=== PATIENT | female | born 1940 | race Caucasian/White ===

== ENCOUNTER 2018-09-17 09:37 | Day surgery (SDC) | payer MEDICARE ==
[~2018-09-17] VITALS: Ht 160 cm; Wt 64.4 kg
[~2018-09-17 09:37] MED LIST: ACET1TAB55 PO; ASPI81TA85 PO; ATOR1TAB21 PO; CALC1TAB63 PO; ELIQ5TAB PO; ESCI10TA2 PO; LIDOCAINE 2% INJ 100 MG/5 ML SDV (FOR ANES.) As Ordered ONE; LISI-538 PO; MELA5TAB21 PO; METO1TAB87 PO; MULTCAP PO; NS 1,000 ML IV SCH; PROPOFOL 200 MG/20 ML VIAL As Ordered ONE; SYST1SOL OU
--- NOTE | 2018-09-17 11:38 | ROOR ---
Patient Name: Ronda Hall Procedure Date: 09/17/2018 11:17 AM Date of : 1940 Age: 77 Room: [facility] Gender: Female Note Status: Finalized Procedure: Total Colonoscopy to Cecum + Cold Snare Polypectomy + Hemoclip Indications: High risk colon cancer surveillance: Personal history of colonic polyps, Last colonoscopy: 2015, Incidental - Change in bowel habits Providers: Jimmy Olson MD Referring MD: Mary Carmen Montero NP Requesting Provider: Medicines: Monitored Anesthesia Care Complications: No immediate complications. Procedure: Pre-Anesthesia Assessment: - The heart rate, respiratory rate, oxygen saturations, blood pressure, adequacy of pulmonary ventilation, and response to care were monitored throughout the procedure. The Colonoscope was introduced through the anus and advanced to the cecum, identified by appendiceal orifice and ileocecal valve. The colonoscopy was performed without difficulty. The patient tolerated the procedure well. The quality of the bowel preparation was excellent. Findings: The perianal and digital rectal examinations were normal. Multiple small and large-mouthed diverticula were found in the recto-sigmoid colon, sigmoid colon and descending colon. A large polyp was found in the cecum. The polyp was carpet-like. The polyp was removed with a cold snare. Resection and retrieval were complete. To prevent bleeding after the polypectomy, one hemostatic clip was successfully placed (MR conditional). There was no bleeding at the end of the procedure. The exam was otherwise without abnormality on direct and retroflexion views. Impression: - Diverticulosis in the recto-sigmoid colon, in the sigmoid colon and in the descending colon. - One large polyp in the cecum, removed with a cold snare. Resected and retrieved. Clip (MR conditional) was placed. - The examination was otherwise normal on direct and retroflexion views. - The exam was otherwise normal to the cecum. Recommendation: - Patient has a contact number available for emergencies. The signs and symptoms of potential delayed complications were discussed with the patient. Return to normal activities tomorrow. Written discharge instructions were provided to the patient. - High fiber diet. - Discharge patient to home. - Continue present medications. - Await pathology results. - Telephone GI clinic for pathology results in 1 week. - Repeat colonoscopy for symptoms only. - Return to referring physician. - The findings and recommendations were discussed with the patient's family. Jimmy Olson MD Jimmy Olson MD 09/17/2018 11:38:05 AM Electronically signed by Jimmy Olson MD Number of Addenda: 0 Note Initiated On: 09/17/2018 11:17 AM Estimated Blood Loss: Estimated blood loss: none.
[2018-09-17 12:14] VITALS: BP 138/90
== END 2018-09-17 12:13 | disposition home or self-care (01) ==
LOC: M OPP 09:37
PROVIDERS: ATTEND Internal Medicine Gastroenterology
DX: K63.5 Polyp of colon (principal); K57.30 Diverticulosis of large intestine without perforation or abscess without bleeding; R19.4 Change in bowel habit; Z86.010 Personal history of colon polyps

== ENCOUNTER 2020-10-07 09:22 | Observation (INO) | payer MEDICARE ==
[~2020-10-07] VITALS: Ht 160 cm; Wt 68.3 kg
[~2020-10-07 09:22] MED LIST changes: -ASPI81TA85 PO; +ASPI81TA86 PO; +ESCI10TA16 PO; -ESCI10TA2 PO; -LIDOCAINE 2% INJ 100 MG/5 ML SDV (FOR ANES.) As Ordered ONE; -LISI-538 PO; +LISI20TA33 PO; -NS 1,000 ML IV SCH; -PROPOFOL 200 MG/20 ML VIAL As Ordered ONE
[2020-10-07] MEDS ORDERED: AMBI10TA PO (09:38)
[2020-10-07] MEDS ORDERED: VITA200028 PO (09:38)
[2020-10-07] MEDS ORDERED: NOXI1TAB PO (09:38)
[2020-10-07 12:58] LABS: BASO # 0.1 10^3/uL (0.0-0.2); BASO % 0.7 % (0.0-1.0); EOS # 0.1 10^3/uL (0.0-0.5); EOS % 1.1 % (0.0-3.0); HEMATOCRIT 37.2 % (36.0-47.0); HEMOGLOBIN 12.2 g/dl (12.0-15.5); LYMPH % 19.4 % (24.0-44.0); MEAN CORPUSCULAR HEMOGLOBIN 30.7 pg (27.0-33.0); MEAN CORPUSCULAR HGB CONC 32.8 g/dl (32.0-36.5); MEAN CORPUSCULAR VOLUME 93.7 fl (80.0-96.0); MONO # 0.8 10^3/uL (0.0-0.8); MONO % 7.7 % (2.0-8.0); NEUTROPHILS # 7.4 10^3/uL (1.5-8.5); NEUTROPHILS % 70.7 % (36.0-66.0); PLATELET COUNT, AUTOMATED 314 10^3/uL (150-450); RED BLOOD COUNT 3.97 10^6/uL (4.00-5.40); WHITE BLOOD COUNT 10.5 10^3/uL (4.0-10.0)
[2020-10-07] MEDS ORDERED: METOPROLOL TART 25 MG TABLET PO ONE (13:00)
[2020-10-07] MEDS ORDERED: ASPIRIN 81 MG CHEW TABLET PO ONE (13:00)
[2020-10-07] MEDS ORDERED: APIXABAN 5 MG TAB (ELIQUIS) PO ONE (13:00)
[2020-10-07 13:08] LABS: INR 1.14; PROTHROMBIN TIME 14.9 SECONDS (12.5-14.3)
[2020-10-07 13:09] LABS: PARTIAL THROMBOPLASTIN TIME 35.2 SECONDS (24.2-38.5)
[2020-10-07 13:31] LABS: ALBUMIN 3.2 GM/DL (3.2-5.2); ALT/SGPT 21 U/L (12-78); BILIRUBIN,DIRECT 0.1 MG/DL (0.0-0.2); BILIRUBIN,TOTAL 0.6 MG/DL (0.2-1.0); BLOOD UREA NITROGEN 20 MG/DL (7-18); CALCIUM LEVEL 8.6 MG/DL (8.8-10.2); CARBON DIOXIDE LEVEL 27 MEQ/L (21-32); CHLORIDE LEVEL 106 MEQ/L (98-107); CK-MB VALUE MASS < 1.0 NG/ML (<3.6); CPK CREATINE PHOSPHOKINASE 61 U/L (26-192); CREATININE FOR GFR 1.05 MG/DL (0.55-1.30); FREE T4 0.96 NG/DL (0.76-1.46); GLOMERULAR FILTRATION RATE 53.8 (>39); GLUCOSE, FASTING 82 MG/DL (70-100); MAGNESIUM LEVEL 2.1 MG/DL (1.8-2.4); MB/CK RELATIVE INDEX 1.64 (< OR =4); PHOSPHORUS LEVEL 3.5 MG/DL (2.5-4.9); POTASSIUM SERUM 3.9 MEQ/L (3.5-5.1); SODIUM LEVEL 138 MEQ/L (136-145); TOTAL PROTEIN 6.8 GM/DL (6.4-8.2); TROPONIN I 0.03 NG/ML (< 0.10)
--- NOTE | 2020-10-07 13:31 | REP ---
INDICATION: pain. COMPARISON: None. TECHNIQUE: Portable FINDINGS: The technique utilized in obtaining the radiograph has magnified the cardiac silhouette and attenuated the interstitial markings. The superior mediastinal structures are midline. The cardiac silhouette appears mildly enlarged but accentuated by technique. Lung owens are clear. No patchy opacities or pleural effusions are present. The osseous structures are within normal limits. IMPRESSION: Possible mild cardiomegaly without evidence of acute cardiopulmonary disease. <Electronically signed by Giovanni Richmond > 10/07/20 [id number]
[2020-10-07] MEDS ORDERED: METOPROLOL 5 MG/5 ML VIAL IV STA (13:50)
[2020-10-07] MEDS ORDERED: AMLO2.5T3 PO (14:26)
[2020-10-07] MEDS ORDERED: FURO20TA2 PO (14:26)
[2020-10-07] MEDS ORDERED: AMIO200T3 PO (14:26)
[2020-10-07] MEDS ORDERED: D31000TA2 PO (14:31)
[2020-10-07] MEDS ORDERED: ACETAMINOPHEN TAB 650MG DOSE (2X325MG) PO PRN (14:45)
[2020-10-07] MEDS ORDERED: MOM 30ML SUSPENSION UDC PO PRN (14:45)
[2020-10-07] MEDS ORDERED: MULT-40 PO (15:10)
[2020-10-07] MEDS ORDERED: ASPI81TA26 PO (15:10)
[2020-10-07] MEDS ORDERED: NATU1TAB5 PO (15:10)
[2020-10-07] MEDS ORDERED: LEXA1TAB PO (15:10)
[2020-10-07] MEDS ORDERED: POLYVINYL ALCOHOL OPHTH SOLN 15 ML(LIQUITEARS) OU PRN (15:25)
--- NOTE | 2020-10-07 15:28 | HPEPDOC ---
[facility] Medical History & Physical Date of Admission Oct 07, 2020 Date of Service: Oct 07, 2020 History and Physical Chief complaint: Who presented to the hospital with bilateral upper arm, neck and back pain for 3 weeks History of present illness: Patient is a 79-year-old female who presented to the hospital with a 3 week history of both her upper arms, neck and upper back pain. Patient describes this as nerve pain. She reports that she takes Tylenol 1000 twice a day with some relief. She uses a recliner to sleep. Reports some difficulty with movement but has denied any falls or any recent injuries. Denies overexerting herself recently. Upon arrival to emergency room, patient was found to have a flutter. However, she does have a prior history of atrial fibrillation. She has recently seen cardiology. 3 weeks ago and was prescribed amiodarone furosemide and amlodipine that she has decided upon herself to stop taking one week ago. Currently patient denies any chest pain, shortness of breath, palpitations or cough. Has not expressed any nausea, vomiting, abdominal pain, urinary discomfort or recent fevers or chills. Patient reports that her lower extremit ies. Has not expressed any edema today. Patient does report a 10 pound weight loss since June. Reports her appetite is poor. Past Medical History: Atrial fibrillation (Eliquis / Metoprolol / Amiodarone) CAD s/p Stent x 3 (2008 x1, 2012 x2; on ASA 81) HTN DLP Anemia 2/2 Iron deficiency Vitamin D deficiency Depression / Insomnia / Fibromyalgia GERD Past Surgical History: Tonsillectomy and adenoidectomy Deviated septum repair Total abdominal hysterectomy with bilateral salpingo-oophorectomy Appendectomy Bilateral foot bunionectomy Colonoscopy 08/2018 with evidence of diverticulosis and polyp resection Allergies: See below Medications: See below Family History: - No history of malignancies Social History: - Denies the use of alcohol or illicit drugs; patient had a remote smoking history - Denies recent travel or sick contacts - Lives with , who is in hospice care at home - 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; 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 Review of Systems: 10 point review of systems complete, all negative otherwise stated in HPI Physical exam: - Vitals: BP [150/79], HR [74], RR [20], Sat [97%RA], Temp [97.3F] - General: Lying in bed, Speaking in full sentences, AAOx3 - HEENT: NC, AT, PERRLA - CVS: IrIr, +S1S2 - Lungs: Fair air entry bilaterally, No appreciable wheezing / rales / rhonchi - Abdomen: Soft, Non-distended, Non-tender - Extremities: No lower extremity edema, No calf tenderness - Neuro: 5/5 strength at upper / lower extremities bilaterally, CN 2-12 grossly intact - Skin: No visible rashes Labs: See below Imaging: CXR 10/07: Possible mild cardiomegaly without evidence of acute cardiopulmonary disease. EKG: See below Assessment and Plan: Bilateral arm / neck / upper back pain - possibly 2/2 musculoskeletal etiology - Patient reports that shes been experiencing this pain for 3 weeks - Some relief with Tylenol - Patient denies any chest pain, shortness breath, palpitations - Physical reveals point tenderness throughout back - Will get PT / OT on board / Fall precautions - c/w Tylenol PRN Atrial fibrillation - Upon arrival to ER, patient was found to be in atrial flutter - Patient reports that 3 weeks ago she was started on amiodarone that she has stopped 1 week ago - Patient remains asymptomatic; denies any chest pain, shortness of breath or palpitations - EKG reviewed - Troponin x 1 negative; will continue to trend - s/p Metoprolol 25 in the ER - Will c/w Metoprolol at increased frequency and Amiodarone - c/w Full anticoagulation with Eliquis CAD - s/p Stent x 3 (2008 x1, 2012 x2 - c/w ASA 81, Atorvastatin and Metoprolol HTN - BP slightly elevated - Will hold Lisinopril and Amlodipine (re: increased dose of Metoprolol) DLP - c/w Atorvastatin Anemia 2/2 Iron deficiency - c/w Iron supplementation Vitamin D deficiency - c/w Vitamin D supplementation Depression / Insomnia / Fibromyalgia - c/w Escitalopram / Zolpidem GERD - Currently not on any medications DVT prophylaxis - Will c/w full anticoagulation with Eliquis Vital Signs Vital Signs Date Time Temp Pulse Resp B/P (MAP) Pulse Ox O2 Delivery O2 Flow Rate FiO2 10/07/20 14:50 81 171/75 10/07/20 13:37 96 10/07/20 09:23 97.3 20 Room Air Laboratory Data Labs 24H Laboratory Tests 2 10/07/20 12:43: Immature Granulocyte % (Auto) 0.4, Neutrophils (%) (Auto) 70.7H, Lymphocytes (%) (Auto) 19.4L, Monocytes (%) (Auto) 7.7, Eosinophils (%) (Auto) 1.1, Basophils (%) (Auto) 0.7, Neutrophils # (Auto) 7.4, Lymphocytes # (Auto) 2.0, Monocytes # (Auto) 0.8, Eosinophils # (Auto) 0.1, Basophils # (Auto) 0.1, Nucleated Red Blood Cells % (auto) 0.0, Prothrombin Time 14.9H, Prothromb Time International Ratio 1.14, Activated Partial Thromboplast Time 35.2, Anion Gap 5L, Glomerular Filtration Rate 53.8, Calcium Level 8.6L, Phosphorus Level 3.5, Magnesium Level 2.1, Total Bilirubin 0.6, Direct Bilirubin 0.1, Aspartate Amino Transf (AST/SGOT) 19, Alanine Aminotransferase (ALT/SGPT) 21, Alkaline Phosphatase 119H, Total Creatine Kinase 61, Creatine Kinase MB < 1.0, Creatine Kinase MB Relative Index 1.64, Troponin I 0.03, Total Protein 6.8, Albumin 3.2, Albumin/Globulin Ratio 0.9L, Thyroid Stimulating Hormone (TSH) 1.550, Free Thyroxine 0.96 CBC/BMP Laboratory Tests 10/07/20 12:43 Home Medications Scheduled Amiodarone HCl (Amiodarone HCl) 200 Mg Tablet, 400 MG PO BID Amlodipine Besylate (Amlodipine Besylate) 2.5 Mg Tablet, 2.5 MG PO DAILY Apixaban (Eliquis) 5 Mg Tablet, 5 MG PO BID Aspirin (Aspirin EC) 81 Mg Tablet.dr, 81 MG PO DAILY Atorvastatin Calcium (Atorvastatin Calcium) 20 Mg Tablet, 20 MG PO QPM Cholecalciferol (Vitamin D3) (Vitamin D3) 125 Mcg Tablet, 125 MCG PO DAILY Escitalopram Oxalate (Lexapro) 10 Mg Tablet, 10 MG PO DAILY Furosemide (Furosemide) 20 Mg Tablet, 20 MG PO DAILY Lisinopril (Lisinopril) 20 Mg Tablet, 20 MG PO DAILY Metoprolol Tartrate (Metoprolol Tartrate) 25 Mg Tablet, 25 MG PO DAILY Multivitamin (Multivitamins) 1 Each Tablet, 1 TAB PO DAILY Scheduled PRN Acetaminophen (Acetaminophen) 325 Mg Tablet, 650 MG PO Q4HP PRN for PAIN Propylene Glycol/Peg 400 (Systane 0.3-0.4% Eye Drops) 15 Ml Drops, 1 DROP OU PRN PRN for DRY EYE Zolpidem Tartrate (Ambien) 10 Mg Tablet, 10 MG PO QHS PRN for SLEEP Allergies Coded Allergies: Penicillins (Verified Allergy, Unknown, HIVES, 09/09/18) DMITRI JHA MD Oct 07, 2020 15:28
[2020-10-07 16:39] LABS: RSV AMPLIFICATION NEGATIVE (NEGATIVE)
[2020-10-07 17:45] VITALS: BP 168/98
[2020-10-07 18:00] LABS: CK-MB VALUE MASS < 1.0 NG/ML (<3.6); CPK CREATINE PHOSPHOKINASE 64 U/L (26-192); MB/CK RELATIVE INDEX 1.56 (< OR =4); TROPONIN I 0.03 NG/ML (< 0.10)
[2020-10-07] MEDS ORDERED: MAGIC MOUTHWASH SUSPENSION BTL SS PRN (18:15)
[2020-10-07] MEDS: ESCITALOPRAM OXALATE 10 MG TAB (LEXAPRO) PO SCH (19:01)
[2020-10-07] MEDS: METOPROLOL TART 25 MG TABLET PO SCH (19:01)
[2020-10-07 20:00] VITALS: BP 149/78
[2020-10-07] MEDS ORDERED: ATORVASTATIN 20 MG TAB PO SCH (21:00)
[2020-10-07] MEDS ORDERED: zolPIDEM TARTRATE 5 MG TAB PO PRN (21:00)
[2020-10-07] MEDS: NYSTATIN 500,000 U/5 ML SUSP UDC SS SCH (21:49)
[2020-10-07] MEDS: APIXABAN 5 MG TAB (ELIQUIS) PO SCH (21:49)
[2020-10-07] MEDS: AMIODARONE 200 MG TAB (PACERONE) PO SCH (21:49)
[2020-10-07] MEDS: DOCUSATE SODIUM 100MG CAPSULE PO SCH (21:49)
[2020-10-08] VITALS (7 sets, daily range): BP systolic 133–172; BP diastolic 68–96
[2020-10-08] MEDS: METOPROLOL TART 25 MG TABLET PO SCH ×2 (00:01→06:32)
[2020-10-08 00:50] LABS: CK-MB VALUE MASS 1.1 NG/ML (<3.6); MB/CK RELATIVE INDEX 1.67 (< OR =4); TROPONIN I 0.02 NG/ML (< 0.10)
[2020-10-08 05:22] LABS: BASO # 0.1 10^3/uL (0.0-0.2); BASO % 1.1 % (0.0-1.0); EOS # 0.2 10^3/uL (0.0-0.5); EOS % 2.6 % (0.0-3.0); HEMATOCRIT 37.6 % (36.0-47.0); HEMOGLOBIN 12.1 g/dl (12.0-15.5); LYMPH # 2.1 10^3/uL (1.5-5.0); LYMPH % 24.3 % (24.0-44.0); MEAN CORPUSCULAR HEMOGLOBIN 30.1 pg (27.0-33.0); MEAN CORPUSCULAR HGB CONC 32.2 g/dl (32.0-36.5); MEAN CORPUSCULAR VOLUME 93.5 fl (80.0-96.0); MONO # 0.7 10^3/uL (0.0-0.8); MONO % 7.6 % (2.0-8.0); NEUTROPHILS # 5.5 10^3/uL (1.5-8.5); NEUTROPHILS % 64.2 % (36.0-66.0); PLATELET COUNT, AUTOMATED 324 10^3/uL (150-450); RED BLOOD COUNT 4.02 10^6/uL (4.00-5.40); WHITE BLOOD COUNT 8.5 10^3/uL (4.0-10.0)
[2020-10-08 05:41] LABS: CALCIUM LEVEL 8.8 MG/DL (8.8-10.2); CREATININE FOR GFR 1.05 MG/DL (0.55-1.30); GLOMERULAR FILTRATION RATE 53.8 (>39); POTASSIUM SERUM 4.1 MEQ/L (3.5-5.1)
[2020-10-08] MEDS: APIXABAN 5 MG TAB (ELIQUIS) PO SCH (08:25)
[2020-10-08] MEDS: AMIODARONE 200 MG TAB (PACERONE) PO SCH (08:25)
[2020-10-08] MEDS: ESCITALOPRAM OXALATE 10 MG TAB (LEXAPRO) PO SCH (08:26)
[2020-10-08] MEDS: NYSTATIN 500,000 U/5 ML SUSP UDC SS SCH (08:26)
[2020-10-08] MEDS: DOCUSATE SODIUM 100MG CAPSULE PO SCH (08:26)
[2020-10-08] MEDS ORDERED: METO1TAB87 PO (08:45)
[2020-10-08] MEDS ORDERED: MULTIVITAMINS/MINERALS THERAP 1 TAB PO SCH (09:00)
[2020-10-08] MEDS ORDERED: VITAMIN D 1,000 INTERNATIONAL UNITS TABLET PO SCH (09:00)
[2020-10-08] MEDS ORDERED: ASPIRIN 81MG ENTERIC TABLET PO SCH (09:00)
--- NOTE | 2020-10-08 12:58 | DS.PDOC ---
Discharge Summary General Date of Admission Oct 07, 2020 at 09:23 Date of Discharge 10/08/2020 Discharge Summary PROCEDURES PERFORMED DURING STAY: [None]. ADMITTING DIAGNOSES / DISCHARGE DIAGNOSES: Atrial fibrillation / flutter Bilateral arm / neck / upper back pain - possibly 2/2 musculoskeletal etiology CAD HTN DLP Anemia 2/2 Iron deficiency Vitamin D deficiency Depression / Insomnia / Fibromyalgia GERD DVT prophylaxis COMPLICATIONS/CHIEF COMPLAINT: Atrial Flutter W/ Rvr. HISTORY OF PRESENT ILLNESS: Patient is a 79-year-old female who presented to the hospital with a 3 week history of both her upper arms, neck and upper back pain. Patient describes this as nerve pain. She reports that she takes Tylenol 1000 twice a day with some relief. She uses a recliner to sleep. Reports some difficulty with movement but has denied any falls or any recent injuries. Denies overexerting herself recently. Upon arrival to ER, patient was found to have a flutter. However, she does have a prior history of atrial fibrillation. She has recently seen cardiology. 3 weeks ago and was prescribed amiodarone furosemide and amlodipine that she has decided upon herself to stop taking one week ago. Patient was originally hospitalist service for observation status of her atrial fibrillation/flutter. HOSPITAL COURSE: Atrial fibrillation / flutter - Upon arrival to ER, patient was found to be in atrial flutter - Patient reports that 3 weeks ago she was started on amiodarone that she has stopped 1 week ago - Patient remains asymptomatic without any chest pain, shortness of breath, palpitations - Rate appears well controlled between 80 and 100 - EKG reviewed - Troponin x 3 negative - s/p Metoprolol 25 in the ER - c/w Metoprolol at BID dosign / Amiodarone based on outpatient regimen - c/w Full anticoagulation with Eliquis - Case has been discussed with cardiology and she will have follow-up with cardiology within the next 7 days Bilateral arm / neck / upper back pain - possibly 2/2 musculoskeletal etiology - Patient reports that shes been experiencing this pain for 3 weeks - Some relief with Tylenol - Again she has denied any chest pain, shortness breath, palpitations - Physical continues to reveal tenderness - Patient will work with PT / OT - if cleared; will be discharge home with services - c/w Tylenol PRN - Will have outpatient follow-up with primary care provider within the next 7 days CAD - s/p Stent x 3; 2008 x1, 2013 x2 - c/w ASA 81, Atorvastatin and Metoprolol BID HTN - BP slightly elevated - Will discontinue Lisinopril - Will resume Amlodipine 2.5 DLP - c/w Atorvastatin Anemia 2/2 Iron deficiency - c/w Iron supplementation Vitamin D deficiency - c/w Vitamin D supplementation Depression / Insomnia / Fibromyalgia - c/w Escitalopram / Zolpidem GERD - Currently not on any medications DVT prophylaxis - c/w full anticoagulation with Eliquis DISCHARGE MEDICATIONS: Please see below. ALLERGIES: Please see below. PHYSICAL EXAMINATION ON DISCHARGE: Vitals (See below) General: Sitting up in bed and appears comfortable, AAOx3 HEENT: NC, AT CVS: +S1S2 Lungs: Fair air entry b/l, no wheezing, rales or rhonchi Abdomen: Soft, ND, NT Extremities: no evidence of edema, - Calf tenderness LABORATORY DATA: Please see below. IMAGING: CXR 10/07: Possible mild cardiomegaly without evidence of acute cardiopulmonary disease. ACTIVITY: [As tolerated]. DISCHARGE PLAN: Follow-up with primary care provider, and cardiology within the next 7 days Consider follow-up with rheumatology after referral from primary care provider Remain compliant with treatment plan and medications Return to the ER if you experience any problems DISPOSITION: Home with services DISCHARGE CONDITION: [Stable]. TIME SPENT ON DISCHARGE: 35 minutes. Vital Signs/I&Os Vital Signs Date Time Temp Pulse Resp B/P (MAP) Pulse Ox O2 Delivery O2 Flow Rate FiO2 10/08/20 12:00 97.7 80 16 136/82 (100) 94 Room Air I&O- Last 24 Hours up to 6 AM 10/08/20 06:00 Intake Total 300 ml Output Total 600 ml Balance -300 ml Laboratory Data Labs 24H Laboratory Tests 2 10/07/20 15:48: Coronavirus (COVID-19)(PCR) NEGATIVE, Influenza Type A (RT-PCR) NEGATIVE, Influenza Type B (RT-PCR) NEGATIVE, Respiratory Syncytial Virus (PCR) NEGATIVE 10/07/20 17:18: Total Creatine Kinase 64, Creatine Kinase MB < 1.0, Creatine Kinase MB Relative Index 1.56, Troponin I 0.03 10/08/20 00:02: Total Creatine Kinase 66, Creatine Kinase MB 1.1, Creatine Kinase MB Relative Index 1.67, Troponin I 0.02# 10/08/20 04:51: Immature Granulocyte % (Auto) 0.2, Neutrophils (%) (Auto) 64.2, Lymphocytes (%) (Auto) 24.3, Monocytes (%) (Auto) 7.6, Eosinophils (%) (Auto) 2.6, Basophils (%) (Auto) 1.1H, Neutrophils # (Auto) 5.5, Lymphocytes # (Auto) 2.1, Monocytes # (A uto) 0.7, Eosinophils # (Auto) 0.2, Basophils # (Auto) 0.1, Nucleated Red Blood Cells % (auto) 0.0, Anion Gap 5L, Glomerular Filtration Rate 53.8, Calcium Level 8.8, Magnesium Level 2.0 CBC/BMP Laboratory Tests 10/08/20 04:51 Discharge Medications Scheduled Amiodarone HCl (Amiodarone HCl) 200 Mg Tablet, 400 MG PO BID, (Reported) Amlodipine Besylate (Amlodipine Besylate) 2.5 Mg Tablet, 2.5 MG PO DAILY, (Reported) Apixaban (Eliquis) 5 Mg Tablet, 5 MG PO BID, (Reported) Aspirin (Aspirin EC) 81 Mg Tablet.dr, 81 MG PO DAILY, (Reported) Atorvastatin Calcium (Atorvastatin Calcium) 20 Mg Tablet, 20 MG PO QPM, (Reported) Cholecalciferol (Vitamin D3) (Vitamin D3) 125 Mcg Tablet, 125 MCG PO DAILY, (Reported) Escitalopram Oxalate (Lexapro) 10 Mg Tablet, 10 MG PO DAILY, (Reported) Metoprolol Tartrate (Metoprolol Tartrate) 25 Mg Tablet, 25 MG PO BID Multivitamin (Multivitamins) 1 Each Tablet, 1 TAB PO DAILY, (Reported) Scheduled PRN Acetaminophen (Acetaminophen) 325 Mg Tablet, 650 MG PO Q4HP PRN for PAIN, (Reported) Propylene Glycol/Peg 400 (Systane 0.3-0.4% Eye Drops) 15 Ml Drops, 1 DROP OU PRN PRN for DRY EYE, (Reported) Zolpidem Tartrate (Ambien) 10 Mg Tablet, 10 MG PO QHS PRN for SLEEP, (Reported) Allergies Coded Allergies: Penicillins (Verified Allergy, Unknown, HIVES, 09/09/18) DMITRI JHA MD Oct 08, 2020 12:58
--- NOTE | 2020-10-08 15:03 | ECGEPIP ---
[facility] - ED Test Date: 2020-10-07 Pat Name: ROSALIA YIN Department: Room: - Gender: Female Email Campaign Specialist: CASEY : 1940 Requested By: TRAVIS Lozano Order Number: [id number] Reading MD: Brian Etienne Measurements Intervals [place] Rate: 89 P: MN: QRS: 7 QRSD: 92 T: 9 QT: 402 QTc: 489 Interpretive Statements Atrial flutter with variable AV block Minimal voltage criteria for LVH, may be normal variant ( R in aVL ) Inferior Q waves of uncertain significance Comparison tracing not on file Electronically Signed on 10-08-2020 15:03:19 EDT by Brian Etienne
--- NOTE | 2020-10-10 22:40 | ECHO ---
ECHOCARDIOGRAM DATE OF PROCEDURE: 10/08/2020 Age: 79 Gender: Female REFERRING PHYSICIAN: Dr. Lily Kimble PATIENT LOCATION: Room 3216. REASON FOR TESTING: Abnormal EKG. 2D MEASUREMENTS: IVS 1.1 cm LVPW 1.0 cm ` LV 4.7 cm LA 4.2 cm Aorta 3.0 cm 2D COMMENTS: 1. Normal left ventricular size and wall thickness, but with a mildly depressed global left ventricular systolic function. The estimated left ventricular systolic ejection fraction is 45 to 50%. 2. Mildly enlarged left atrium. The right atrium was noted to be mildly enlarged. Normal right ventricle. 3. The atrial septum appeared to be normal without evidence of defect or shunt. 4. Normal aortic root. 5. A small pericardial effusion was noted. No evidence of cardiac tamponade. 6. Mildly calcified aortic valve with normal leaflet excursion. Mildly calcified mitral annulus with normal anterior mitral valve leaflet motion. Normal tricuspid valve. The pulmonic valve was not well visualized as well as the proximal pulmonary artery branches. 7. The inferior vena cava was not visualized. DOPPLER: No significant valvular abnormalities detected, but trace tricuspid regurgitation. Assessment of the left ventricular diastolic function was limited, patient was in atrial flutter during the test. IMPRESSION: 1. Probably mildly depressed global left ventricular systolic dysfunction with global hypokinesis. Assessment of the left ventricular diastolic function was limited in view of the underlying arrhythmia/atrial flutter/fibrillation. 2. Isolated mildly dilated left atrium, probably related to the underlying atrial fibrillation/flutter. No significant mitral regurgitation or mitral stenosis. 3. Trace tricuspid regurgitation. The right atrium also appeared to be mildly enlarged. 4. A small pericardial effusion was noted, no evidence of cardiac tamponade. [facility]
== END 2020-10-08 12:54 | disposition home health service (06) ==
LOC: M ED 09:22 → M ED INP 09:23 → ENRESERV 15:47 → M PCU 17:49
PROVIDERS: ADMIT Internal Medicine; ATTEND Internal Medicine
DX: I48.0 Paroxysmal atrial fibrillation (principal); M79.603 Pain in arm, unspecified; M54.5 Low back pain; M54.2 Cervicalgia; I25.10 Atherosclerotic heart disease of native coronary artery without angina pectoris; I10 Essential (primary) hypertension; E78.49 Other hyperlipidemia; D64.9 Anemia, unspecified; E55.9 Vitamin D deficiency, unspecified; Z98.61 Coronary angioplasty status; F32.9 Major depressive disorder, single episode, unspecified; G47.00 Insomnia, unspecified; M79.7 Fibromyalgia; K21.9 Gastro-esophageal reflux disease without esophagitis; Z79.82 Long term (current) use of aspirin; Z79.01 Long term (current) use of anticoagulants; Z79.899 Other long term (current) drug therapy; Z88.0 Allergy status to penicillin
CPT/HCPCS: 36415; 71046; 80048; 80076; 82550; 82553; 83735; 84100; 84145; 84439; 84443; 84484; 85025; 85610; 85730; 87631; 93005; 93041; 93306; 94760; 96374; 97161; 97165; 99285; G0378

== ENCOUNTER 2020-12-26 05:09 | Observation (INO) | payer MEDICARE ==
[~2020-12-26] VITALS: Ht 160 cm; Wt 63.6 kg
[~2020-12-26 05:09] MED LIST changes: +AMBI10TA PO; +AMIO200T3 PO; +AMLO2.5T3 PO; +ASPI81TA26 PO; +D31000TA2 PO; +FURO20TA2 PO; +LEXA1TAB PO; +MULT-40 PO; +NATU1TAB5 PO; +NOXI1TAB PO; +VITA200028 PO
[2020-12-26] MEDS ORDERED: METOPROLOL TART 25 MG TABLET PO ONE (08:50)
[2020-12-26] MEDS ORDERED: amLODIPine 5 MG TAB PO ONE (08:50)
[2020-12-26] MEDS ORDERED: VITAMIN D 1,000 INTERNATIONAL UNITS TABLET PO SCH (09:00)
[2020-12-26] MEDS ORDERED: MULTIVITAMINS/MINERALS THERAP 1 TAB PO SCH (09:00)
[2020-12-26] MEDS ORDERED: ATORVASTATIN 20 MG TAB PO SCH (09:00)
[2020-12-26] MEDS ORDERED: ASPIRIN 81MG ENTERIC TABLET PO SCH (09:00)
[2020-12-26] MEDS ORDERED: ESCITALOPRAM OXALATE 10 MG TAB (LEXAPRO) PO SCH (09:00)
--- NOTE | 2020-12-26 09:13 | REP ---
INDICATION: trauma. COMPARISON: Comparison maxillofacial CT study November 16, 2007. TECHNIQUE: Helical scanning is acquired. 5 mm axial images were reformatted. Coronal MPR images were generated. FINDINGS: Bone window settings demonstrate an intact bony calvarium. There is no evidence of skull fracture or incidental bony calvarial lesion. The visualized paranasal sinuses appear clear. No intraorbital abnormality is seen. On soft tissue window setting images; the lateral, third, and fourth ventricles are normal in size and position. Frye-white differentiation pattern is normal above and below the tentorium. There are is no evidence of intracranial hemorrhage. No mass, edema, infarction, or midline shift is seen. No extra-axial fluid collection is appreciated. There are a few dystrophic calcifications in the right superior cerebellar hemisphere. IMPRESSION: There are several dystrophic calcifications noted incidentally in the right superior cerebellar hemisphere. No skull fracture or intracranial injury seen. Minimal generalized volume loss and vascular calcification are noted. There is a mucous retention cyst in the right maxillary sinus. <Electronically signed by Lewis Scott > 12/26/20 [id number]
--- NOTE | 2020-12-26 09:16 | REP ---
INDICATION: trauma. COMPARISON: Comparison is made with images from MRI study of the cervical spine dated September 13, 2004. TECHNIQUE: Helical scanning is acquired and overlapping 2 mm high resolution axial images were generated and reviewed at bone and soft tissue window settings. Coronal and sagittal multiplanar re-formations images are generated. FINDINGS: There is no evidence of cervical spine element fracture. No skull base fracture is seen. Cervical vertebral body heights are preserved. Alignment is normal. Facet joints are normally aligned bilaterally at each cervical level on multiplanar re-formations images. There is no evidence of intraspinal or paraspinal hematoma. No extra vertebral abnormality is seen. There is straightening of the normal cervical lordosis. The patient is status post ventral discectomy and fusion plating across the C6-7 level as previously noted. There is moderate degenerative disc disease at C5-6 with anterior and posterior osteophytic ridging. There is bilateral facet osteoarthritis, left more prominent than right, particularly at C4-5 and C3-4. There is osteoarthritis at the articulation between the dens and anterior arch of C1. IMPRESSION: Degenerative spondylosis changes. Status post C6-7 fusion. Straightening. No traumatic abnormality noted. There is a mucous retention cyst in the maxillary sinus on the right. <Electronically signed by Lewis Scott > 12/26/20 0927
[2020-12-26 09:31] LABS: BASO % 0.4 % (0.0-1.0); EOS # 0.1 10^3/uL (0.0-0.5); EOS % 0.8 % (0.0-3.0); HEMATOCRIT 35.3 % (36.0-47.0); HEMOGLOBIN 11.4 g/dl (12.0-15.5); LYMPH # 1.9 10^3/uL (1.5-5.0); LYMPH % 21.4 % (24.0-44.0); MEAN CORPUSCULAR HEMOGLOBIN 30.9 pg (27.0-33.0); MEAN CORPUSCULAR HGB CONC 32.3 g/dl (32.0-36.5); MEAN CORPUSCULAR VOLUME 95.7 fl (80.0-96.0); MONO # 0.6 10^3/uL (0.0-0.8); NEUTROPHILS # 6.3 10^3/uL (1.5-8.5); NEUTROPHILS % 70.1 % (36.0-66.0); PLATELET COUNT, AUTOMATED 321 10^3/uL (150-450); RED BLOOD COUNT 3.69 10^6/uL (4.00-5.40)
--- NOTE | 2020-12-26 09:40 | REP ---
INDICATION: weakness. COMPARISON: Comparison chest x-ray October 07, 2020. TECHNIQUE: Two views.. FINDINGS: The lungs are symmetrically aerated and free of infiltrate. Pleural angles are sharp. There is moderate cardiomegaly again noted. The thoracic aorta is calcific and tortuous as before. The pulmonary vasculature is not increased. There are degenerative changes in the thoracic spine and shoulders. The patient is status post lower cervical discectomy and fusion plating. IMPRESSION: Moderate cardiomegaly. Otherwise no acute disease. <Electronically signed by Lewis Scott > 12/26/20 0921
[2020-12-26] MEDS ORDERED: XANA0.25 PO (09:50)
[2020-12-26 10:07] LABS: ALBUMIN 3.2 GM/DL (3.2-5.2); BILIRUBIN,DIRECT 0.1 MG/DL (0.0-0.2); BILIRUBIN,TOTAL 0.5 MG/DL (0.2-1.0); CALCIUM LEVEL 9.1 MG/DL (8.8-10.2); CK-MB VALUE MASS 1.8 NG/ML (<3.6); CREATININE FOR GFR 0.96 MG/DL (0.55-1.30); FREE T4 0.92 NG/DL (0.76-1.46); GLOMERULAR FILTRATION RATE 59.5 (>32); MB/CK RELATIVE INDEX 2.07 (< OR =4); POTASSIUM SERUM 4.3 MEQ/L (3.5-5.1); THYROID STIMULATING HORMONE 1.57 uIU/ML (0.358-3.740); TROPONIN I 0.1 NG/ML (< 0.10)
[2020-12-26] MEDS ORDERED: LABETALOL 100MG/20ML VIAL IV STA ×2 (10:28→12:55)
[2020-12-26] MEDS ORDERED: MOM 30ML SUSPENSION UDC PO PRN (11:15)
[2020-12-26] MEDS ORDERED: MAALOX 30 ML SUSP *UDC PO PRN (11:15)
[2020-12-26] MEDS ORDERED: POLYVINYL ALCOHOL OPHTH SOLN 15 ML(LIQUITEARS) OU PRN (11:15)
[2020-12-26] MEDS ORDERED: METO1TAB87 PO (11:25)
[2020-12-26] MEDS ORDERED: AMBI5TAB PO (11:25)
[2020-12-26] MEDS ORDERED: ACET-683 PO (11:25)
[2020-12-26] MEDS ORDERED: HOME MED LIST COMPLETE! XX SCH (11:30)
--- NOTE | 2020-12-26 11:32 | HPEPDOC ---
[facility] Medical History & Physical Date of Admission Dec 26, 2020 Date of Service: Dec 26, 2020 History and Physical Chief complaint: Who presented to the emergency room brought in by ambulance after she was unable to get back into bed History of present illness: Patient is an 80-year-old female who presented to the hospital, brought in by ambulance because she was unable to get back in bed. Patient reported that yesterday she had taken Xanax provided to her by her stepdaughter as well as her Ambien. Patient reported that she got out of bed yesterday in an attempt to get her dog back into bed. Patient reported that she was very weak and unable to get back into bed reported that she crawled contacted EMS. Patient denies any fall or loss of consciousness. On arrival to emergency room, patient denies any chest pain, shortness of breath, cough or palpitations. Has not expressed any nausea, vomiting, abdominal pain, constipation, diarrhea, or urinary discomfort. She denies any recent fevers or chills. Patient again is reporting upper back, neck and back pain that has been an ongoing problem for her for at least 3 months. Past Medical History: Atrial fibrillation (Eliquis / Metoprolol / Amiodarone) CAD s/p Stent x 3 (2008 x1, 2013 x2; on ASA 81) HTN DLP Anemia 2/2 Iron deficiency Vitamin D deficiency Depression / Insomnia / Fibromyalgia GERD Past Surgical History: Tonsillectomy and adenoidectomy Deviated septum repair Total abdominal hysterectomy with bilateral salpingo-oophorectomy Appendectomy Bilateral foot bunionectomy Colonoscopy 08/2018 with evidence of diverticulosis and polyp resection Allergies: See below Medications: See below Family History: - Reviewed and noncontributory Social History: - Denies the use of alcohol or illicit drugs; patient had a remote smoking hi story - Denies recent travel or sick contacts - is in hospice - 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; 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 Review of Systems: 10 point review of systems complete, all negative otherwise stated in HPI Physical exam: - Vitals: BP [220/99], HR [67], RR [16], Sat [94%RA], Temp [98.7F] - General: Lying in bed, No acute distress, Speaking in full sentences, AAOx3 - HEENT: NC, AT, PERRLA - CVS: RRR, +S1S2, - Murmurs / rubs / gallops - Lungs: Fair air entry bilaterally, No appreciable wheezing / rales / rhonchi - Abdomen: Soft, Non-distended, Non-tender - Extremities: No lower extremity edema, No calf tenderness - Neuro: No focal motor or sensory deficit - Skin: No visible rashes Labs: See below Imaging: CXR 12/26: Moderate cardiomegaly. Otherwise no acute disease. CT Cervical spine 12/26: Degenerative spondylosis changes. Status post C6-7 fusion. Straightening. No traumatic abnormality noted. There is a mucous retention cyst in the maxillary sinus on the right. CT Head 12/26: There are several dystrophic calcifications noted incidentally in the right superior cerebellar hemisphere. No skull fracture or intracranial injury seen. Minimal generalized volume loss and vascular calcification are noted. There is a mucous retention cyst in the right maxillary sinus. EKG: See below Assessment and Plan: Acute toxic encephalopathy - Patient has reportedly taken Xanax and Ambien at night - Appears to be very drowsy on conversation, however, is oriented to person, place and time - No focal deficits on exam - Imaging noted above - Will get MRI brain - c/w Telemetry monitoring / Neuro checks Hypertensive urgency - SBPs of 220s in the ER - s/p Amlodipine 5, Metoprolol 25, Labetalol 10 - Will resume home BP regimen with Amlodipine / Metoprolol - Will start Hydralazine for SBP > 160 - Will follow troponin trend - c/w Telemetry monitoring Reported suicidal ideation - Patient reported to nursing staff that she wishes she went to sleep and didnt wake up - Will place on one-to-one observation - Suicidal precatutions - Will consult Psychiatry; Dr. Brannon; case discussed Atrial fibrillation - c/w rate and rhythm control with Metoprolol / Amiodarone - c/w full anticoagulation with Eliquis CAD s/p Stent x 3 (2008 x1, 2012 x2) - c/w ASA 81 DLP - c/w Atorvastatin Anemia 2/2 Iron deficiency Vitamin D deficiency - Will c/w Vitamin D supplement Depression / Insomnia / Fibromyalgia - c/w Escitalopram, Tylenol PRN - Hold Xanax and Ambien GERD - Currently not on any medications DVT prophylaxis - Will c/w full anticoagulation with Eliquis Vital Signs Vital Signs Date Time Temp Pulse Resp B/P (MAP) Pulse Ox O2 Delivery O2 Flow Rate FiO2 12/26/20 11:15 72 15 196/65 (108) 96 Room Air 12/26/20 07:15 98.7 Laboratory Data Labs 24H Laboratory Tests 2 12/26/20 09:08: Immature Granulocyte % (Auto) 0.3, Neutrophils (%) (Auto) 70.1H, Lymphocytes (%) (Auto) 21.4L, Monocytes (%) (Auto) 7.0, Eosinophils (%) (Auto) 0.8, Basophils (%) (Auto) 0.4, Neutrophils # (Auto) 6.3, Lymphocytes # (Auto) 1.9, Monocytes # (Auto) 0.6, Eosinophils # (Auto) 0.1, Basophils # (Auto) 0.0, Nucleated Red Blo od Cells % (auto) 0.0, Anion Gap 6L, Glomerular Filtration Rate 59.5, Calcium Level 9.1, Total Bilirubin 0.5, Direct Bilirubin 0.1, Aspartate Amino Transf (AST/SGOT) 14, Alanine Aminotransferase (ALT/SGPT) 24, Alkaline Phosphatase 137H, Total Creatine Kinase 87, Creatine Kinase MB 1.8, Creatine Kinase MB Relative Index 2.07, Troponin I 0.10, Total Protein 7.0, Albumin 3.2, Albumin/Globulin Ratio 0.8L, Thyroid Stimulating Hormone (TSH) 1.570, Free Thyroxine 0.92 CBC/BMP Laboratory Tests 12/26/20 09:08 Home Medications Scheduled Apixaban (Eliquis) 5 Mg Tablet, 5 MG PO BID Aspirin (Aspirin EC) 81 Mg Tablet.dr, 81 MG PO DAILY Atorvastatin Calcium (Atorvastatin Calcium) 20 Mg Tablet, 20 MG PO DAILY Cholecalciferol (Vitamin D3) (Vitamin D3) 125 Mcg Tablet, 125 MCG PO DAILY Escitalopram Oxalate (Lexapro) 10 Mg Tablet, 10 MG PO DAILY Metoprolol Tartrate (Metoprolol Tartrate) 25 Mg Tablet, 25 MG PO BID Multivitamin (Multivitamins) 1 Each Tablet, 1 TAB PO DAILY Zolpidem Tartrate (Ambien) 5 Mg Tablet, 5 MG PO QHS Scheduled PRN Acetaminophen (Acetaminophen) 500 Mg Tablet, 1,000 MG PO Q6H PRN for PAIN LEVEL 1-4 Alprazolam (Xanax) 0.25 Mg Tablet, 0.25 MG PO TID PRN for ANXIETY Propylene Glycol/Peg 400 (Systane 0.3-0.4% Eye Drops) 15 Ml Drops, 1 DROP OU DAILY PRN for DRY EYES Allergies Coded Allergies: Penicillins (Verified Allergy, Unknown, HIVES, 09/09/18) DMITRI JHA MD Dec 26, 2020 11:32
[2020-12-26 12:30] LABS: RSV AMPLIFICATION NEGATIVE (NEGATIVE)
[2020-12-26 13:14] VITALS: BP 196/89
[2020-12-26 13:44] LABS: CK-MB VALUE MASS 1.6 NG/ML (<3.6); MB/CK RELATIVE INDEX 2.08 (< OR =4); TROPONIN I 0.09 NG/ML (< 0.10)
--- NOTE | 2020-12-26 15:24 | REPVR ---
PROCEDURE INFORMATION: Exam: MR Head Without Contrast Exam date and time: 12/26/2020 2:51 PM Age: 80 years old Clinical indication: R/O CVA TECHNIQUE: Imaging protocol: MR of the head without contrast. COMPARISON: CT Head without contrast 12/26/2020 8:22 AM FINDINGS: Brain: There are scattered nonspecific foci of high signal abnormality in the hurley radiata and centrum semiovale. These are best seen on the flair images. These foci may represent areas of gliosis, demyelination, and/or chronic ischemic change. There is moderate cerebral atrophy. Cerebral ventricles: Normal. No ventriculomegaly. Bones/joints: Unremarkable. Paranasal sinuses: There is a retention cyst/polyp in the right maxillary sinus. Mastoid air cells: Normal as visualized. No mastoid effusion. Orbital cavity: Unremarkable. Soft tissues: Unremarkable. IMPRESSION: 1. There are scattered nonspecific foci of high signal abnormality in the hurley radiata and centrum semiovale. These are best seen on the flair images. These foci may represent areas of gliosis, demyelination, and/or chronic ischemic change. No acute infarct is identified. 2. There is moderate cerebral atrophy. Electronically signed by: Gorge Springer On 12/26/2020 15:24:10 PM
[2020-12-26 15:47] VITALS: BP 175/85
[2020-12-26] MEDS: hydrALAZINE 20MG/ML 1ML VIAL (J0360 PER 20MG) IV SCH ×2 (16:06→21:00)
[2020-12-26] MEDS: ACETAMINOPHEN TAB 650MG DOSE (2X325MG) PO PRN ×2 (16:07→21:24)
--- NOTE | 2020-12-26 17:38 | MHCRPDOC ---
[facility] Consultation Consultation DATE OF CONSULTATION: 12/26/20 CONSULTATION REQUESTED BY: Dr. Kimble REASON FOR CONSULTATION: Patient supposedly stated that she did not want to wake up. RELEVANT HISTORY: Patient is who is 79 is presently in hospice. He was in hospice at home and patient had to take care of him which was a great deal of work for her however it was decided that he needed to go to residential hospice. Recently the patient because her was "going to go soon" she visited him and stayed with him at hospice. She states she went there and was unprepared. She had taken some medication prescribed to her for sleep and her stepdaughter while she was there gave her another pill patient also had her dog that hospice room and was attempting to bring the dog and put her back on the bed the patient herself was not able to get back into bed. She ended up sitting on the floor crawling into the bathroom and calling for help. Because the hospice was unable to treat her they sent her to the emergency room patient has had heart difficulties with a heart attack and 3 stents. She also has significant nerve pain difficulties she has many friends. She is "a [employer]" and has been unable to go to nondenominational because of [place] it. 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 She was for 64 years there was no legal or drug history and patient states she never wanted to she has hearing aids but did not want to use them. When patient was in the bathroom she threw up. Presently she is feeling weak and says she has not eaten all day.. PAST PSYCHIATRIC HISTORY: None PAST MEDICAL HISTORY: Heart condition and nerve pain with a history of heart attack and stent FAMILY HISTORY: Mother: Noncontributory Father: Noncontributory Siblings: Noncontributory Children: 2 children and 3 stepchildren PERSONAL AND SOCIAL HISTORY: The patient was born and raised in [place]. High school and college education Resides in: [place] Marital Status: M Children: As above Employment: [employer] HISTORY: Smoking: No contribution ETOH: None Illicit Drugs: None LEGAL HISTORY: . MENTAL STATUS EXAMINATION: Patient is a 80-year old female, who is here due to having been on the floor at hospice and throwing up. Speech is normal. Language skills are no disturbance. Thought processes including: no disturbance Thought content: No abnormalities of thought content. Abstract reasoning, and computation: Able to abstract. Description of associations: No loose associations. Description of abnormal or psychotic thoughts: No psychotic thought. Judgment: Good. Insight: Good. Orientation to x3. Recent and remote memory: Intact. Attention span and concentration: Intact. Language: Intact. Fund of knowledge: Full. Mood: Good. Affect: Bright. DIAGNOSIS: 1. Acute encephalopathy secondary to medication given by her daughter. PLAN: 1. No plan necessary I suggest restricting any benzodiazepine in this patient. Vital Signs Vital Signs Date Time Temp Pulse Resp B/P (MAP) Pulse Ox O2 Delivery O2 Flow Rate FiO2 12/26/20 16:00 18 12/26/20 15:47 74 175/85 (115) 12/26/20 15:47 98.7 95 Room Air Laboratory Data 24H Labs Laboratory Tests 2 12/26/20 09:08: Immature Granulocyte % (Auto) 0.3, Neutrophils (%) (Auto) 70.1H, Lymphocytes (%) (Auto) 21.4L, Monocytes (%) (Auto) 7.0, Eosinophils (%) (Auto) 0.8, Basophils (%) (Auto) 0.4, Neutrophils # (Auto) 6.3, Lymphocytes # (Auto) 1.9, Monocytes # (Auto) 0.6, Eosinophils # (Auto) 0.1, Basophils # (Auto) 0.0, Nucleated Red Blood Cells % (auto) 0.0, Anion Gap 6L, Glomerular Filtration Rate 59.5, Calcium Level 9.1, Total Bilirubin 0.5, Direct Bilirubin 0.1, Aspartate Amino Transf (AST/SGOT) 14, Alanine Aminotransferase (ALT/SGPT) 24, Alkaline Phosphatase 137H, Total Creatine Kinase 87, Creatine Kinase MB 1.8, Creatine Kinase MB Relative Index 2.07, Troponin I 0.10, Total Protein 7.0, Albumin 3.2, Albumin/Globulin Ratio 0.8L, Thyroid Stimulating Hormone (TSH) 1.570, Free Thyroxine 0.92 12/26/20 11:05: Coronavirus (COVID-19)(PCR) NEGATIVE, Influenza Type A (RT-PCR) NEGATIVE, Influenza Type B (RT-PCR) NEGATIVE, Respiratory Syncytial Virus (PCR) NEGATIVE 12/26/20 13:01: Total Creatine Kinase 77, Creatine Kinase MB 1.6, Creatine Kinase MB Relative Index 2.08, Troponin I 0.09 Home Medications Current Medications Current Medications Medications (Trade) Dose Ordered Sig/Camille Route PRN Reason Start Time Stop Time Status Last Admin Dose Admin Acetaminophen (Tylenol Tab) 650 mg Q4H PRN PO MILD PAIN or TEMP > 101 12/26/20 11:15 12/26/20 16:07 Al Hydrox/Mg Hydrox/Simethicone (Mylanta) 30 ml DAILY PRN PO DYSPEPSIA 12/26/20 11:15 Apixaban (Eliquis) 5 mg BID PO 12/26/20 21:00 Artificial Tears (Akwa Tears) 1 drop DAILY PRN OU DRY EYES 12/26/20 11:15 Aspirin (Ecotrin) 81 mg DAILY PO 12/26/20 09:00 Atorvastatin Calcium (Lipitor) 20 mg DAILY PO 12/26/20 09:00 Docusate Sodium (Colace) 100 mg BID PO 12/26/20 21:00 Escitalopram Oxalate (Lexapro) 10 mg DAILY PO 12/26/20 09:00 Home Med (Home Med List Complete!) ASDIRECTED XX 12/26/20 11:30 12/26/20 11:28 DC Hydralazine HCl (Apresoline) 10 mg Q8H IV 12/26/20 13:00 12/26/20 16:06 Labetalol HCl (Normodyne, Trandate) 10 mg STAT STAT IV 12/26/20 10:28 12/26/20 10:29 DC 12/26/20 11:06 Labetalol HCl (Normodyne, Trandate) 20 mg STAT STAT IV 12/26/20 12:55 12/26/20 12:56 DC 12/26/20 13:14 Magnesium Hydroxide (Milk Of Magnesia) 30 ml DAILY PRN PO CONSTIPATION 12/26/20 11:15 Metoprolol Tartrate (Lopressor) 25 mg BID PO 12/26/20 21:00 Multivitamins (Theragram-M) 1 tab DAILY PO 12/26/20 09:00 Vitamin D (Vitamin D) 5,000 units DAILY PO 12/26/20 09:00 Scheduled Apixaban (Eliquis) 5 Mg Tablet, 5 MG PO BID, (Reported) Aspirin (Aspirin EC) 81 Mg Tablet.dr, 81 MG PO DAILY, (Reported) Atorvastatin Calcium (Atorvastatin Calcium) 20 Mg Tablet, 20 MG PO DAILY, (Reported) Cholecalciferol (Vitamin D3) (Vitamin D3) 125 Mcg Tablet, 125 MCG PO DAILY, (Reported) Escitalopram Oxalate (Lexapro) 10 Mg Tablet, 10 MG PO DAILY, (Reported) Metoprolol Tartrate (Metoprolol Tartrate) 25 Mg Tablet, 25 MG PO BID, (Reported) Multivitamin (Multivitamins) 1 Each Tablet, 1 TAB PO DAILY, (Reported) Zolpidem Tartrate (Ambien) 5 Mg Tablet, 5 MG PO QHS, (Reported) Scheduled PRN Acetaminophen (Acetaminophen) 500 Mg Tablet, 1,000 MG PO Q6H PRN for PAIN LEVEL 1-4, (Reported) Alprazolam (Xanax) 0.25 Mg Tablet, 0.25 MG PO TID PRN for ANXIETY, (Reported) Propylene Glycol/Peg 400 (Systane 0.3-0.4% Eye Drops) 15 Ml Drops, 1 DROP OU DAILY PRN for DRY EYES, (Reported) Allergies Coded Allergies: Penicillins (Verified Allergy, Unknown, HIVES, 09/09/18) TIFFANIE MIXON MD Dec 26, 2020 17:38
[2020-12-26 19:19] LABS: CK-MB VALUE MASS < 1.0 NG/ML (<3.6); CPK CREATINE PHOSPHOKINASE 71 U/L (26-192); MB/CK RELATIVE INDEX 1.41 (< OR =4); TROPONIN I 0.09 NG/ML (< 0.10)
[2020-12-26 20:00] VITALS: BP 133/71
[2020-12-26] MEDS ORDERED: METOPROLOL TART 25 MG TABLET PO SCH (21:00)
[2020-12-26] MEDS ORDERED: DOCUSATE SODIUM 100MG CAPSULE PO SCH (21:00)
[2020-12-26] MEDS ORDERED: APIXABAN 5 MG TAB (ELIQUIS) PO SCH (21:00)
[2020-12-26] MEDS ORDERED: RAMELTEON 8 MG TAB (ROZEREM) PO PRN (21:00)
[2020-12-27] VITALS: BP 174/73
[2020-12-27] MEDS: ACETAMINOPHEN TAB 650MG DOSE (2X325MG) PO PRN ×2 (01:06→06:11)
[2020-12-27] MEDS: hydrALAZINE 20MG/ML 1ML VIAL (J0360 PER 20MG) IV SCH ×2 (01:13→04:24)
[2020-12-27 01:29] VITALS: BP 116/75
[2020-12-27 04:00] VITALS: BP 149/73
[2020-12-27 04:55] LABS: BASO # 0.1 10^3/uL (0.0-0.2); BASO % 0.7 % (0.0-1.0); EOS # 0.1 10^3/uL (0.0-0.5); EOS % 1.8 % (0.0-3.0); HEMATOCRIT 32.1 % (36.0-47.0); HEMOGLOBIN 10.5 g/dl (12.0-15.5); LYMPH # 1.9 10^3/uL (1.5-5.0); LYMPH % 26.4 % (24.0-44.0); MEAN CORPUSCULAR HEMOGLOBIN 30.9 pg (27.0-33.0); MEAN CORPUSCULAR HGB CONC 32.7 g/dl (32.0-36.5); MEAN CORPUSCULAR VOLUME 94.4 fl (80.0-96.0); MONO # 0.7 10^3/uL (0.0-0.8); MONO % 9.4 % (2.0-8.0); NEUTROPHILS # 4.5 10^3/uL (1.5-8.5); NEUTROPHILS % 61.4 % (36.0-66.0); PLATELET COUNT, AUTOMATED 303 10^3/uL (150-450); WHITE BLOOD COUNT 7.4 10^3/uL (4.0-10.0)
[2020-12-27 05:16] LABS: BLOOD UREA NITROGEN 18 MG/DL (7-18); CALCIUM LEVEL 9.3 MG/DL (8.8-10.2); CARBON DIOXIDE LEVEL 27 MEQ/L (21-32); CHLORIDE LEVEL 107 MEQ/L (98-107); CREATININE FOR GFR 0.91 MG/DL (0.55-1.30); GLOMERULAR FILTRATION RATE > 60.0 (>32); GLUCOSE, FASTING 99 MG/DL (70-100); POTASSIUM SERUM 3.7 MEQ/L (3.5-5.1); SODIUM LEVEL 139 MEQ/L (136-145)
--- NOTE | 2020-12-27 05:53 | ECGEPIP ---
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
[2020-12-27 08:00] VITALS: BP 160/88
--- NOTE | 2020-12-27 12:16 | DS.PDOC ---
Discharge Summary General Date of Admission Dec 26, 2020 at 11:14 Date of Discharge 12/27/2020 Discharge Summary PROCEDURES PERFORMED DURING STAY: [None]. ADMITTING DIAGNOSES / DISCHARGE DIAGNOSES: s/p Acute toxic encephalopathy HTN s/p Suicidal ideation Atrial fibrillation CAD s/p Stent x 3 (2008 x1, 2012 x2) DLP Anemia 2/2 Iron deficiency Vitamin D deficiency Depression / Insomnia / Fibromyalgia GERD DVT prophylaxis COMPLICATIONS/CHIEF COMPLAINT: Confusion / Weakness HISTORY OF PRESENT ILLNESS: Patient is an 80-year-old female who presented to the hospital, brought in by ambulance because she was unable to get back in bed. Patient reported that yesterday she had taken Xanax provided to her by her stepdaughter as well as her Ambien. Patient reported that she got out of bed yesterday in an attempt to get her dog back into bed. Patient reported that she was very weak and unable to get back into bed reported that she crawled contacted EMS. Patient denies any fall or loss of consciousness. On arrival to emergency room, patient denies any chest pain, shortness of breath, cough or palpitations. Has not expressed any nausea, vomiting, abdominal pain, constipation, diarrhea, or urinary discomfort. She denies any recent fevers or chills. Patient was noted to the hospital service for further evaluation and treatment. Patient was seen and examined at the bedside this morning. Denies any chest pain, shortness breath, palpitations, nausea, vomiting, abdominal pain or diarrhea. She does work with physical therapy and has been cleared for discharge home. Unfortunately, patient has noted that her has this morning and is anxious to get to hospice house today. HOSPITAL COURSE: s/p Acute toxic encephalopathy - Patient has reportedly taken Xanax and Ambien at night - This morning patient is fully oriented to person, place and time - No focal deficits on exam - Imaging noted above - c/w Telemetry monitoring / Neuro checks - Will discontinue use of benzodiazepines on discharge HTN - s/p Hypertensive urgency - SBPs of 220s in the ER on admission; has improved this morning to the 140s to 160s - Troponin trend negative - s/p Amlodipine 5, Metoprolol 25, Labetalol 10 - c/w Amlodipine / Metoprolol - s/p Hydralazine for SBP > 160 - c/w Telemetry monitoring - Will have outpatient follow-up with primary care provider within the next 7 days s/p Suicidal ideation - Patient reported to nursing staff that she wishes she went to sleep and didnt wake up - s/p one-to-one observation and suicidal precatutions - Psychiatry was consulted; Dr. Brannon; appreciate their input - patient has been cleared Chronic pain - She reports that she has neuropathic pain and she sees neurology as an outpatient - Will have outpatient follow-up with neurology within the next 7 days Atrial fibrillation - c/w rate and rhythm control with Metoprolol / Amiodarone - c/w full anticoagulation with Eliquis CAD s/p Stent x 3 (2008 x1, 2012 x2) - c/w ASA 81 DLP - c/w Atorvastatin Anemia 2/2 Iron deficiency Vitamin D deficiency - Will c/w Vitamin D supplement Depression / Insomnia / Fibromyalgia - c/w Escitalopram, Tylenol PRN - Will discontinue Xanax on discharge - Will resume Ambien on discharge GERD - Currently not on any medications DVT prophylaxis - c/w full anticoagulation with Eliquis DISCHARGE MEDICATIONS: Please see below. ALLERGIES: Please see below. PHYSICAL EXAMINATION ON DISCHARGE: Vitals (See below) General: Lying in bed, appears comfortable, AAOx3 HEENT: NC, AT CVS: +S1S2 Lungs: Fair air entry b/l, no evidence of wheezing / rhonchi / rales Abdomen: Soft, nondistended, nontender Extremities: No evidence of edema, - Calf tenderness LABORATORY DATA: Please see below. IMAGING: CXR 12/26: Moderate cardiomegaly. Otherwise no acute disease. CT Cervical spine 12/26: Degenerative spondylosis changes. Status post C6-7 fusion. Straightening. No traumatic abnormality noted. There is a mucous retention cyst in the maxillary sinus on the right. CT Head 12/26: There are several dystrophic calcifications noted incidentally in the right s uperior cerebellar hemisphere. No skull fracture or intracranial injury seen. Minimal generalized volume loss and vascular calcification are noted. There is a mucous retention cyst in the right maxillary sinus. MRI 12/26: 1. There are scattered nonspecific foci of high signal abnormality in the hurley radiata and centrum semiovale. These are best seen on the flair images. These foci may represent areas of gliosis, demyelination, and/or chronic ischemic change. No acute infarct is identified. 2. There is moderate cerebral atrophy. ACTIVITY: [As tolerated]. DISCHARGE PLAN: Follow-up with primary care provider within the next 7 days Remain compliant with treatment plan and medications Return to the ER if you experience any problems DISPOSITION: Home, Self-Care. DISCHARGE CONDITION: [Stable]. TIME SPENT ON DISCHARGE: 35 minutes. Vital Signs/I&Os Vital Signs Date Time Temp Pulse Resp B/P (MAP) Pulse Ox O2 Delivery O2 Flow Rate FiO2 12/27/20 08:00 97.8 68 18 160/88 (112) 95 Room Air I&O- Last 24 Hours up to 6 AM 12/27/20 06:00 Intake Total 90 ml Output Total 250 ml Balance -160 ml Laboratory Data Labs 24H Laboratory Tests 2 12/26/20 13:01: Total Creatine Kinase 77, Creatine Kinase MB 1.6, Creatine Kinase MB Relative Index 2.08, Troponin I 0.09 12/26/20 18:29: Total Creatine Kinase 71, Creatine Kinase MB < 1.0, Creatine Kinase MB Relative Index 1.41, Troponin I 0.09 12/27/20 04:21: Immature Granulocyte % (Auto) 0.3, Neutrophils (%) (Auto) 61.4, Lymphocytes (%) (Auto) 26.4, Monocytes (%) (Auto) 9.4H, Eosinophils (%) (Auto) 1.8, Basophils (%) (Auto) 0.7, Neutrophils # (Auto) 4.5, Lymphocytes # (Auto) 1.9, Monocytes # (Auto) 0.7, Eosinophils # (Auto) 0.1, Basophils # (Auto) 0.1, Nucleated Red Blood Cells % (auto) 0.0, Anion Gap 5L, Glomerular Filtration Rate > 60.0, Calcium Level 9.3, Magnesium Level 2.0 CBC/BMP Laboratory Tests 12/27/20 04:21 Discharge Medications Scheduled Apixaban (Eliquis) 5 Mg Tablet, 5 MG PO BID, (Reported) Aspirin (Aspirin EC) 81 Mg Tablet.dr, 81 MG PO DAILY, (Reported) Atorvastatin Calcium (Atorvastatin Calcium) 20 Mg Tablet, 20 MG PO DAILY, (Reported) Cholecalciferol (Vitamin D3) (Vitamin D3) 125 Mcg Tablet, 125 MCG PO DAILY, (Reported) Escitalopram Oxalate (Lexapro) 10 Mg Tablet, 10 MG PO DAILY, (Reported) Metoprolol Tartrate (Metoprolol Tartrate) 25 Mg Tablet, 25 MG PO BID, (Reported) Multivitamin (Multivitamins) 1 Each Tablet, 1 TAB PO DAILY, (Reported) Zolpidem Tartrate (Ambien) 5 Mg Tablet, 5 MG PO QHS, (Reported) Scheduled PRN Acetaminophen (Acetaminophen) 500 Mg Tablet, 1,000 MG PO Q6H PRN for PAIN LEVEL 1-4, (Reported) Propylene Glycol/Peg 400 (Systane 0.3-0.4% Eye Drops) 15 Ml Drops, 1 DROP OU DAILY PRN for DRY EYES, (Reported) Allergies Coded Allergies: Penicillins (Verified Allergy, Unknown, HIVES, 09/09/18) DMITRI JHA MD Dec 27, 2020 12:16
== END 2020-12-27 10:03 | disposition home or self-care (01) ==
LOC: M ED 05:09 → M ED INP 11:14 → ENRESERV 14:00 → M PCU 15:15
PROVIDERS: ADMIT Internal Medicine; ATTEND Internal Medicine
DX: G92 Toxic encephalopathy (principal); I16.0 Hypertensive urgency; I10 Essential (primary) hypertension; I48.91 Unspecified atrial fibrillation; I25.10 Atherosclerotic heart disease of native coronary artery without angina pectoris; Z98.61 Coronary angioplasty status; E78.5 Hyperlipidemia, unspecified; D50.9 Iron deficiency anemia, unspecified; E55.9 Vitamin D deficiency, unspecified; F32.9 Major depressive disorder, single episode, unspecified; G47.00 Insomnia, unspecified; M79.7 Fibromyalgia; K21.9 Gastro-esophageal reflux disease without esophagitis; G89.29 Other chronic pain; Z79.01 Long term (current) use of anticoagulants; Z79.82 Long term (current) use of aspirin; Z79.899 Other long term (current) drug therapy; Z88.0 Allergy status to penicillin
CPT/HCPCS: 36415; 70450; 70551; 71046; 72125; 80048; 80076; 82550; 82553; 83735; 84439; 84443; 84484; 85025; 87631; 93005; 93041; 94760; 96374; 96376; 97116; 97161; 99285; G0378; J0360

== ENCOUNTER → 2021-02-12 | Outpatient (CLI) | payer MEDICARE ==
[~2021-02-12] MED LIST changes: +ACET-683 PO; +AMBI5TAB PO; +XANA0.25 PO
--- NOTE | 2021-02-12 13:56 | REP ---
INDICATION: CERVICALGIA. NO HISTORY OF TRAUMA SINCE THE C-SPINE CT OF 12/26/2020 COMPARISON: C-spine CT of 12/26/2020. TECHNIQUE: AP and lateral views only. FINDINGS: There is an anterior internal fixation plate and fixing C6 and C7. The screw tips do not breach the posterior vertebral body cortex. There is advanced disc space narrowing at C5-6 with heavy anterior and posterior osteophytic ridging. Hypertrophic degenerative facet and uncovertebral joint changes are present at every level bilaterally but particularly on the left. There is a minimal 2 mm anterolisthesis of C 4 on C5 the appearance of this is unchanged when compared to the prior CT. IMPRESSION: Chronic changes as described above. <Electronically signed by Giovanni Richmond > 02/12/21 [id number]
== END ==
LOC: M SOG 13:15
PROVIDERS: ATTEND Orthopaedic Surgery
DX: M54.2 Cervicalgia (principal)

== ENCOUNTER → 2021-12-20 | Outpatient (CLI) | payer MEDICARE ==
[~2021-12-20] MED LIST changes: -AMIO200T3 PO; +AMIO200T49 PO; -D31000TA2 PO; +VITA100093 PO
== END ==
LOC: M WUC 10:32
PROVIDERS: ATTEND Physician Assistant
DX: M54.50 Low back pain, unspecified (principal)

== ENCOUNTER 2022-07-30 11:34 | Inpatient (IN) | payer MEDICARE ==
[~2022-07-30] VITALS: Ht 160 cm; Wt 64.0 kg
[2022-07-30] MEDS ORDERED: TETRACAINE 0.5% OPHTH SOLN 4ML OU ONE (12:50)
[2022-07-30 13:10] LABS: BASO # 0.1 10^3/uL (0.0-0.2); BASO % 0.6 % (0.0-1.0); EOS # 0.1 10^3/uL (0.0-0.5); EOS % 1.6 % (0.0-3.0); LYMPH # 2.3 10^3/uL (1.5-5.0); LYMPH % 28.7 % (24.0-44.0); MEAN CORPUSCULAR HEMOGLOBIN 32.1 pg (27.0-33.0); MEAN CORPUSCULAR HGB CONC 33.3 g/dl (32.0-36.5); MEAN CORPUSCULAR VOLUME 96.2 fl (80.0-96.0); MONO # 0.6 10^3/uL (0.0-0.8); MONO % 7.8 % (2.0-8.0); NEUTROPHILS # 4.8 10^3/uL (1.5-8.5); PLATELET COUNT, AUTOMATED 237 10^3/uL (150-450); RED BLOOD COUNT 3.43 10^6/uL (4.00-5.40); WHITE BLOOD COUNT 7.9 10^3/uL (4.0-10.0)
[2022-07-30] MEDS ORDERED: ISOVUE-370 76% 100ML VIAL As Ordered ONE (13:17)
[2022-07-30 13:20] LABS: INR 1.2; PROTHROMBIN TIME 15.5 SECONDS (12.5-14.5)
[2022-07-30 13:21] LABS: PARTIAL THROMBOPLASTIN TIME 34.4 SECONDS (24.8-34.2)
[2022-07-30 13:32] LABS: CK-MB VALUE MASS < 1.0 NG/ML (<3.6)
[2022-07-30 13:34] LABS: CPK CREATINE PHOSPHOKINASE 58 U/L (34-145); MB/CK RELATIVE INDEX 1.72 (< OR =4)
[2022-07-30] MEDS ORDERED: ACETAMINOPHEN 1000MG 100ML IV BAG IV ONE (13:45)
[2022-07-30] MEDS ORDERED: FURO20TA2 PO (15:15)
[2022-07-30] MEDS ORDERED: ASPIRIN 81MG CHEW TABLET PO ONE (15:15)
[2022-07-30] MEDS ORDERED: HOME MED LIST COMPLETE! XX SCH (15:20)
[2022-07-30 15:29] LABS: CK-MB VALUE MASS < 1.0 NG/ML (<3.6)
[2022-07-30 15:30] LABS: CPK CREATINE PHOSPHOKINASE 64 U/L (34-145); MB/CK RELATIVE INDEX 1.56 (< OR =4)
[2022-07-30] MEDS ORDERED: ATORVASTATIN 20 MG TAB PO ONE (16:40)
[2022-07-30] MEDS ORDERED: ACETAMINOPHEN 500 MG TAB PO PRN (16:40)
[2022-07-30] MEDS ORDERED: ALPRAZolam 0.25 MG TAB PO ONE (17:00)
[2022-07-30 17:23] LABS: CPK CREATINE PHOSPHOKINASE 60 U/L (34-145)
[2022-07-30 17:31] LABS: BLOOD UREA NITROGEN 22 MG/DL (9-23); CALCIUM LEVEL 8.9 MG/DL (8.3-10.6); CARBON DIOXIDE LEVEL 30 MMOL/L (20-31); CHLORIDE LEVEL 102 MMOL/L (98-107); CHOLESTEROL LEVEL 240 MG/DL (<200); CHOLESTEROL RISK RATIO 5.19 (<5); CK-MB VALUE MASS < 1.0 NG/ML (<3.6); CREATININE FOR GFR 1.06 MG/DL (0.55-1.30); GLUCOSE, FASTING 84 MG/DL (74-106); HDL CHOLESTEROL 46.2 MG/DL (>40); LDL CHOLESTEROL 148.6 MG/DL (<100); MB/CK RELATIVE INDEX 1.66 (< OR =4); NON-HDL-C 193.8 MG/DL; POTASSIUM SERUM 3.9 MMOL/L (3.5-5.1); SODIUM LEVEL 138 MMOL/L (136-145); TRIGLYCERIDES LEVEL 226 MG/DL (<150)
[2022-07-30 17:32] LABS: RSV AMPLIFICATION NEGATIVE (NEGATIVE)
[2022-07-30 17:46] LABS: HEMOGLOBIN A1c 5.3 % (4.0-6.0)
[2022-07-30 19:41] LABS: CHOLESTEROL RISK RATIO 5.05 (<5); HDL CHOLESTEROL 51.6 MG/DL (>40); LDL CHOLESTEROL 160.6 MG/DL (<100); NON-HDL-C 209.4 MG/DL
[2022-07-30 19:56] VITALS: BP 208/90
[2022-07-30] MEDS: APIXABAN 5 MG TAB (ELIQUIS) PO SCH (21:23)
[2022-07-30] MEDS: zolPIDEM TARTRATE 5 MG TAB PO SCH (21:23)
[2022-07-30] MEDS: ACETAMINOPHEN TAB 650MG DOSE (2X325MG) PO PRN (21:31)
[2022-07-30] MEDS: LABETALOL 100MG/20ML VIAL IV PRN (21:32)
[2022-07-30 22:00] VITALS: BP 209/102
[2022-07-31] VITALS (8 sets, daily range): BP systolic 125–192; BP diastolic 65–88
[2022-07-31] MEDS: ACETAMINOPHEN TAB 650MG DOSE (2X325MG) PO PRN ×3 (07:55→21:18)
[2022-07-31 08:24] LABS: HEMATOCRIT 33.4 % (36.0-47.0); HEMOGLOBIN 11.2 g/dl (12.0-15.5); MEAN CORPUSCULAR HEMOGLOBIN 32.7 pg (27.0-33.0); MEAN CORPUSCULAR HGB CONC 33.5 g/dl (32.0-36.5); MEAN CORPUSCULAR VOLUME 97.7 fl (80.0-96.0); PLATELET COUNT, AUTOMATED 208 10^3/uL (150-450); RED BLOOD COUNT 3.42 10^6/uL (4.00-5.40); WHITE BLOOD COUNT 6.2 10^3/uL (4.0-10.0)
[2022-07-31] MEDS: APIXABAN 5 MG TAB (ELIQUIS) PO SCH ×2 (08:39→20:53)
[2022-07-31] MEDS: ASPIRIN 81MG ENTERIC TABLET PO SCH (08:39)
[2022-07-31] MEDS: VITAMIN D 1,000 INTERNATIONAL UNITS TABLET PO SCH (08:39)
[2022-07-31] MEDS: ESCITALOPRAM OXALATE 10 MG TAB (LEXAPRO) PO SCH (08:39)
[2022-07-31 08:46] LABS: ALBUMIN 3.2 G/DL (3.2-5.2); BILIRUBIN,TOTAL 0.7 MG/DL (0.3-1.2); CALCIUM LEVEL 8.8 MG/DL (8.3-10.6); GLOMERULAR FILTRATION RATE 56.6 (>32); POTASSIUM SERUM 3.4 MMOL/L (3.5-5.1); TOTAL PROTEIN 5.9 G/DL (5.7-8.2)
[2022-07-31] MEDS ORDERED: ATORVASTATIN 20 MG TAB PO SCH (09:00)
[2022-07-31] MEDS ORDERED: amLODIPine 5 MG TAB PO SCH (09:00)
[2022-07-31] MEDS ORDERED: ASPIRIN 325 MG TAB PO SCH (09:00)
[2022-07-31] MEDS ORDERED: POTASSIUM CHLORIDE 10MEQ SR TABLET PO ONE (09:20)
[2022-07-31] MEDS ORDERED: POLYVINYL ALCOHOL OPHTH SOLN 15ML (LIQUITEARS) OU PRN (11:30)
[2022-07-31] MEDS: LABETALOL 100MG/20ML VIAL IV PRN (12:20)
[2022-07-31] MEDS ORDERED: LABETALOL 100MG/20ML VIAL IV PRN (18:00)
[2022-07-31] MEDS: TOPIRAMATE (TopAMAX) 25 MG TAB PO SCH (18:22)
[2022-07-31] MEDS: zolPIDEM TARTRATE 5 MG TAB PO SCH (20:53)
[2022-08-01 04:00] VITALS: BP 164/68
[2022-08-01 06:21] LABS: BASO # 0.1 10^3/uL (0.0-0.2); BASO % 0.9 % (0.0-1.0); EOS # 0.2 10^3/uL (0.0-0.5); EOS % 2.8 % (0.0-3.0); HEMATOCRIT 33.7 % (36.0-47.0); HEMOGLOBIN 11.1 g/dl (12.0-15.5); LYMPH # 1.6 10^3/uL (1.5-5.0); LYMPH % 29.3 % (24.0-44.0); MEAN CORPUSCULAR HEMOGLOBIN 32.3 pg (27.0-33.0); MEAN CORPUSCULAR HGB CONC 32.9 g/dl (32.0-36.5); MONO # 0.5 10^3/uL (0.0-0.8); MONO % 10.2 % (2.0-8.0); NEUTROPHILS % 56.6 % (36.0-66.0); PLATELET COUNT, AUTOMATED 206 10^3/uL (150-450); RED BLOOD COUNT 3.44 10^6/uL (4.00-5.40); WHITE BLOOD COUNT 5.3 10^3/uL (4.0-10.0)
[2022-08-01 06:50] LABS: CALCIUM LEVEL 8.7 MG/DL (8.3-10.6); CREATININE FOR GFR 0.96 MG/DL (0.55-1.30); GLOMERULAR FILTRATION RATE 59.4 (>32)
[2022-08-01 07:37] VITALS: BP 142/92
[2022-08-01] MEDS ORDERED: ROSUVASTATIN 10 MG TAB (CRESTOR) PO SCH (09:00)
[2022-08-01] MEDS ORDERED: lisinopriL 5 MG TAB PO SCH (09:00)
[2022-08-01] MEDS ORDERED: METOPROLOL TART 25 MG TABLET PO SCH (09:00)
[2022-08-01] MEDS: ASPIRIN 81MG ENTERIC TABLET PO SCH (09:27)
[2022-08-01] MEDS: ESCITALOPRAM OXALATE 10 MG TAB (LEXAPRO) PO SCH (09:27)
[2022-08-01] MEDS: VITAMIN D 1,000 INTERNATIONAL UNITS TABLET PO SCH (09:27)
[2022-08-01 09:28] VITALS: BP 170/82
[2022-08-01] MEDS: TOPIRAMATE (TopAMAX) 25 MG TAB PO SCH (09:28)
[2022-08-01] MEDS: APIXABAN 5 MG TAB (ELIQUIS) PO SCH (09:28)
[2022-08-01] MEDS ORDERED: IBUPROFEN 100MG 5ML ORAL SUSP UDC PO PRN (10:05)
[2022-08-01 11:56] VITALS: BP 140/82
[2022-08-01] MEDS ORDERED: ASPI81TAEC PO (12:44)
[2022-08-01] MEDS ORDERED: LISI10TA22 PO (12:44)
[2022-08-01] MEDS ORDERED: ACET-683 PO (12:44)
[2022-08-01] MEDS ORDERED: CRES10TA PO (12:44)
[2022-08-01] MEDS ORDERED: TOPA1TAB PO (12:44)
[2022-08-01] MEDS ORDERED: METO1TAB87 PO (12:44)
[2022-08-01] MEDS ORDERED: ROSU20TA5 PO (12:48)
[2022-08-01] MEDS ORDERED: BUTA-198 PO (14:07)
[2022-08-01] MEDS ORDERED: FIORICET TAB PO ONE (14:10)
== END 2022-08-01 15:20 | disposition home or self-care (01) | DRG 65 ==
LOC: M ED 11:34 → M ED INP 16:32 → ENRESERV 19:49 → M PCU 19:55
PROVIDERS: ADMIT Internal Medicine; ATTEND Internal Medicine
DX: I63.9 Cerebral infarction, unspecified (principal); I24.8 Other forms of acute ischemic heart disease; I50.22 Chronic systolic (congestive) heart failure; I11.0 Hypertensive heart disease with heart failure; F32.A Depression, unspecified; I16.0 Hypertensive urgency; I48.91 Unspecified atrial fibrillation; I25.10 Atherosclerotic heart disease of native coronary artery without angina pectoris; M19.90 Unspecified osteoarthritis, unspecified site; H35.30 Unspecified macular degeneration; G47.00 Insomnia, unspecified; E55.9 Vitamin D deficiency, unspecified; Z79.01 Long term (current) use of anticoagulants; E78.5 Hyperlipidemia, unspecified; M54.9 Dorsalgia, unspecified; G43.909 Migraine, unspecified, not intractable, without status migrainosus; M79.7 Fibromyalgia; Z88.0 Allergy status to penicillin; Z79.899 Other long term (current) drug therapy; Z79.82 Long term (current) use of aspirin; Z91.128 Patient's intentional underdosing of medication regimen for other reason

== ENCOUNTER 2022-09-24 14:24 | Inpatient (IN) | payer MEDICARE ==
[~2022-09-24] VITALS: Ht 160 cm; Wt 60.0 kg
[~2022-09-24 14:24] MED LIST changes: +ASPI81TAEC PO; +BUTA-198 PO; +CRES10TA PO; +LISI10TA22 PO; +ROSU20TA61 PO; +TOPA1TAB PO
[2022-09-24] MEDS ORDERED: BOOSTRIX VACCINE (TETANUS/DIPHTH/ACEL. PERTUSSIS) 0.5ML SYR IM.IMMUN ONE (16:05)
[2022-09-24] MEDS ORDERED: ACETAMINOPHEN TAB 650MG DOSE (2X325MG) PO ONE (16:10)
[2022-09-24 16:19] LABS: BASO # 0.1 10^3/uL (0.0-0.2); BASO % 0.7 % (0.0-1.0); EOS # 0.1 10^3/uL (0.0-0.5); EOS % 1.2 % (0.0-3.0); HEMATOCRIT 32.6 % (36.0-47.0); HEMOGLOBIN 10.8 g/dl (12.0-15.5); LYMPH # 1.7 10^3/uL (1.5-5.0); LYMPH % 15.1 % (24.0-44.0); MEAN CORPUSCULAR HEMOGLOBIN 32.7 pg (27.0-33.0); MEAN CORPUSCULAR HGB CONC 33.1 g/dl (32.0-36.5); MEAN CORPUSCULAR VOLUME 98.8 fl (80.0-96.0); MONO # 0.6 10^3/uL (0.0-0.8); MONO % 5.4 % (2.0-8.0); NEUTROPHILS # 8.8 10^3/uL (1.5-8.5); NEUTROPHILS % 77.2 % (36.0-66.0); PLATELET COUNT, AUTOMATED 297 10^3/uL (150-450); WHITE BLOOD COUNT 11.4 10^3/uL (4.0-10.0)
[2022-09-24 16:26] LABS: CALCIUM LEVEL 9.1 MG/DL (8.3-10.6); CREATININE FOR GFR 1.22 MG/DL (0.55-1.30); MAGNESIUM LEVEL 1.9 MG/DL (1.8-2.4); POTASSIUM SERUM 4.2 MMOL/L (3.5-5.1)
[2022-09-24 16:29] LABS: THYROID STIMULATING HORMONE 1.374 uIU/ML (0.55-4.78)
[2022-09-24 18:13] LABS: RSV AMPLIFICATION NEGATIVE (NEGATIVE)
[2022-09-24] MEDS ORDERED: NS 1,000 ML IV SCH (19:00)
[2022-09-24] MEDS ORDERED: METO25TA4 PO (19:08)
[2022-09-24] MEDS ORDERED: ASPI81TA26 PO (19:08)
[2022-09-24] MEDS ORDERED: ROSU10TA6 PO (19:08)
[2022-09-24] MEDS ORDERED: LISI10TA22 PO (19:08)
[2022-09-24] MEDS ORDERED: HOME MED LIST COMPLETE! XX SCH (19:10)
[2022-09-24] MEDS ORDERED: POLYVINYL ALCOHOL OPHTH SOLN 15ML (LIQUITEARS) OU PRN (19:35)
[2022-09-24] MEDS ORDERED: LORazepam 2 MG/ML 1ML VIAL IV STA (19:45)
[2022-09-24] MEDS ORDERED: ROSUVASTATIN 10 MG TAB (CRESTOR) PO SCH (21:00)
[2022-09-24 21:35] VITALS: BP 174/54; TEMP 99; O2SAT 95
[2022-09-24] MEDS: ASPIRIN 81MG ENTERIC TABLET PO SCH (22:00)
[2022-09-24] MEDS: APIXABAN 5 MG TAB (ELIQUIS) PO SCH (22:01)
[2022-09-24] MEDS: ESCITALOPRAM OXALATE 10 MG TAB (LEXAPRO) PO SCH (22:01)
[2022-09-24] MEDS: zolPIDEM TARTRATE 5 MG TAB PO SCH (22:01)
[2022-09-24] MEDS: METOPROLOL TART 25 MG TABLET PO SCH (22:02)
[2022-09-24] MEDS ORDERED: KETOROLAC 30 MG/ML 1ML VIAL IV ONE (23:50)
[2022-09-25] VITALS (7 sets, daily range): BP systolic 145–172; BP diastolic 60–73; TEMP 98.2–98.6; O2SAT 97
[2022-09-25] MEDS: METOPROLOL TART 25 MG TABLET PO SCH ×2 (05:27→21:13)
[2022-09-25 06:18] LABS: HEMATOCRIT 27.2 % (36.0-47.0); MEAN CORPUSCULAR HEMOGLOBIN 32.3 pg (27.0-33.0); MEAN CORPUSCULAR HGB CONC 33.1 g/dl (32.0-36.5); MEAN CORPUSCULAR VOLUME 97.5 fl (80.0-96.0); PLATELET COUNT, AUTOMATED 232 10^3/uL (150-450); RED BLOOD COUNT 2.79 10^6/uL (4.00-5.40); WHITE BLOOD COUNT 8.3 10^3/uL (4.0-10.0)
[2022-09-25 06:38] LABS: ALBUMIN 3.1 G/DL (3.2-5.2); BILIRUBIN,TOTAL 1.1 MG/DL (0.3-1.2); CALCIUM LEVEL 8.5 MG/DL (8.3-10.6); CREATININE FOR GFR 1.19 MG/DL (0.55-1.30); GLOMERULAR FILTRATION RATE 46.3 (>32); POTASSIUM SERUM 4.1 MMOL/L (3.5-5.1); TOTAL PROTEIN 5.7 G/DL (5.7-8.2)
[2022-09-25] MEDS: APIXABAN 5 MG TAB (ELIQUIS) PO SCH (10:19)
[2022-09-25] MEDS: RIVAROXABAN 15MG TAB (XARELTO) PO SCH (17:58)
[2022-09-25] MEDS: ACETAMINOPHEN TAB 650MG DOSE (2X325MG) PO PRN (18:18)
[2022-09-25] MEDS: zolPIDEM TARTRATE 5 MG TAB PO SCH (21:12)
[2022-09-25] MEDS: ROSUVASTATIN 10 MG TAB (CRESTOR) PO SCH (21:12)
[2022-09-25] MEDS: ASPIRIN 81MG ENTERIC TABLET PO SCH (21:12)
[2022-09-25] MEDS: ESCITALOPRAM OXALATE 10 MG TAB (LEXAPRO) PO SCH (21:13)
[2022-09-26 04:40] VITALS: BP 113/72; TEMP 98.4; O2SAT 96
[2022-09-26 06:27] LABS: BASO # 0.1 10^3/uL (0.0-0.2); BASO % 0.8 % (0.0-1.0); EOS # 0.2 10^3/uL (0.0-0.5); HEMATOCRIT 27.3 % (36.0-47.0); HEMOGLOBIN 9.1 g/dl (12.0-15.5); MEAN CORPUSCULAR HEMOGLOBIN 32.5 pg (27.0-33.0); MEAN CORPUSCULAR HGB CONC 33.3 g/dl (32.0-36.5); MEAN CORPUSCULAR VOLUME 97.5 fl (80.0-96.0); MONO # 0.6 10^3/uL (0.0-0.8); MONO % 7.5 % (2.0-8.0); NEUTROPHILS # 5.1 10^3/uL (1.5-8.5); NEUTROPHILS % 63.4 % (36.0-66.0); PLATELET COUNT, AUTOMATED 231 10^3/uL (150-450)
[2022-09-26 06:50] LABS: CALCIUM LEVEL 8.4 MG/DL (8.3-10.6); CREATININE FOR GFR 1.04 MG/DL (0.55-1.30); GLOMERULAR FILTRATION RATE 54.1 (>32); MAGNESIUM LEVEL 1.8 MG/DL (1.8-2.4); POTASSIUM SERUM 4.1 MMOL/L (3.5-5.1)
[2022-09-26] MEDS: METOPROLOL TART 25 MG TABLET PO SCH ×2 (09:10→21:08)
[2022-09-26] MEDS ORDERED: PRESCAP PO (10:15)
[2022-09-26 14:00] VITALS: BP 160/88; TEMP 97.5; O2SAT 98
[2022-09-26] MEDS: ACETAMINOPHEN TAB 650MG DOSE (2X325MG) PO PRN ×2 (14:00→22:58)
[2022-09-26] MEDS: RIVAROXABAN 15MG TAB (XARELTO) PO SCH (17:51)
[2022-09-26 20:45] VITALS: BP 154/72; TEMP 98.6; O2SAT 94
[2022-09-26] MEDS: zolPIDEM TARTRATE 5 MG TAB PO SCH (21:07)
[2022-09-26] MEDS: ROSUVASTATIN 10 MG TAB (CRESTOR) PO SCH (21:07)
[2022-09-26] MEDS: ESCITALOPRAM OXALATE 10 MG TAB (LEXAPRO) PO SCH (21:08)
[2022-09-26] MEDS: ASPIRIN 81MG ENTERIC TABLET PO SCH (21:09)
[2022-09-26 22:00] VITALS: BP 154/72
[2022-09-27] VITALS (7 sets, daily range): BP systolic 164–189; BP diastolic 66–75; TEMP 97–98.1; O2SAT 96–100
[2022-09-27 06:28] LABS: BASO # 0.1 10^3/uL (0.0-0.2); BASO % 0.6 % (0.0-1.0); EOS # 0.3 10^3/uL (0.0-0.5); HEMATOCRIT 27.2 % (36.0-47.0); LYMPH # 2.2 10^3/uL (1.5-5.0); LYMPH % 26.6 % (24.0-44.0); MEAN CORPUSCULAR HEMOGLOBIN 31.8 pg (27.0-33.0); MEAN CORPUSCULAR HGB CONC 33.1 g/dl (32.0-36.5); MEAN CORPUSCULAR VOLUME 96.1 fl (80.0-96.0); MONO # 0.5 10^3/uL (0.0-0.8); MONO % 6.2 % (2.0-8.0); NEUTROPHILS # 5.2 10^3/uL (1.5-8.5); NEUTROPHILS % 63.2 % (36.0-66.0); PLATELET COUNT, AUTOMATED 249 10^3/uL (150-450); RED BLOOD COUNT 2.83 10^6/uL (4.00-5.40); WHITE BLOOD COUNT 8.2 10^3/uL (4.0-10.0)
[2022-09-27] MEDS ORDERED: METOPROLOL TART 12.5 MG PER 1/2 TAB PO ONE (06:45)
[2022-09-27 06:46] LABS: CALCIUM LEVEL 8.9 MG/DL (8.3-10.6); CREATININE FOR GFR 0.97 MG/DL (0.55-1.30); GLOMERULAR FILTRATION RATE 58.7 (>32); MAGNESIUM LEVEL 1.8 MG/DL (1.8-2.4); POTASSIUM SERUM 4.2 MMOL/L (3.5-5.1)
[2022-09-27] MEDS: METOPROLOL TART 25 MG TABLET PO SCH ×2 (09:51→21:24)
[2022-09-27] MEDS: ACETAMINOPHEN TAB 650MG DOSE (2X325MG) PO PRN ×2 (11:38→21:25)
[2022-09-27] MEDS: OCUVITE 1 TAB PO SCH (11:38)
[2022-09-27] MEDS: RIVAROXABAN 15MG TAB (XARELTO) PO SCH (17:37)
[2022-09-27] MEDS: FUROSEMIDE 20 MG TAB PO SCH (18:10)
[2022-09-27] MEDS: ESCITALOPRAM OXALATE 10 MG TAB (LEXAPRO) PO SCH (21:21)
[2022-09-27] MEDS: ROSUVASTATIN 10 MG TAB (CRESTOR) PO SCH (21:21)
[2022-09-27] MEDS: ASPIRIN 81MG ENTERIC TABLET PO SCH (21:21)
[2022-09-27] MEDS: zolPIDEM TARTRATE 5 MG TAB PO SCH (21:24)
[2022-09-28 05:46] LABS: BASO # 0.1 10^3/uL (0.0-0.2); BASO % 0.6 % (0.0-1.0); EOS # 0.3 10^3/uL (0.0-0.5); EOS % 3.2 % (0.0-3.0); HEMATOCRIT 26.6 % (36.0-47.0); LYMPH # 2.3 10^3/uL (1.5-5.0); LYMPH % 28.4 % (24.0-44.0); MEAN CORPUSCULAR HEMOGLOBIN 32.4 pg (27.0-33.0); MEAN CORPUSCULAR HGB CONC 33.8 g/dl (32.0-36.5); MEAN CORPUSCULAR VOLUME 95.7 fl (80.0-96.0); MONO # 0.7 10^3/uL (0.0-0.8); MONO % 8.1 % (2.0-8.0); NEUTROPHILS # 4.8 10^3/uL (1.5-8.5); NEUTROPHILS % 59.6 % (36.0-66.0); PLATELET COUNT, AUTOMATED 256 10^3/uL (150-450); RED BLOOD COUNT 2.78 10^6/uL (4.00-5.40); WHITE BLOOD COUNT 8.1 10^3/uL (4.0-10.0)
[2022-09-28 06:00] VITALS: BP 159/64; TEMP 98.6; O2SAT 99
[2022-09-28 06:12] LABS: CALCIUM LEVEL 8.8 MG/DL (8.3-10.6); CREATININE FOR GFR 1.19 MG/DL (0.55-1.30); GLOMERULAR FILTRATION RATE 46.3 (>32); MAGNESIUM LEVEL 1.6 MG/DL (1.8-2.4); POTASSIUM SERUM 3.9 MMOL/L (3.5-5.1)
[2022-09-28] MEDS: MAG SULF 1GM/100ML (MAG RUN) 1 GM in IV 1 EA IV SCH ×3 (09:39→10:57)
[2022-09-28] MEDS: OCUVITE 1 TAB PO SCH (09:41)
[2022-09-28] MEDS: FUROSEMIDE 20 MG TAB PO SCH (09:41)
[2022-09-28] MEDS: ACETAMINOPHEN TAB 650MG DOSE (2X325MG) PO PRN ×2 (09:41→21:23)
[2022-09-28] MEDS: METOPROLOL TART 25 MG TABLET PO SCH ×2 (09:42→20:34)
[2022-09-28] MEDS ORDERED: MIRALAX *UNIT DOSE* 17GM PACKET PO PRN (09:50)
[2022-09-28] MEDS: DOCUSATE SODIUM 100MG CAPSULE PO SCH (10:23)
[2022-09-28 14:00] VITALS: BP 143/51; TEMP 97.7; O2SAT 95
[2022-09-28] MEDS: RIVAROXABAN 15MG TAB (XARELTO) PO SCH (17:52)
[2022-09-28 20:30] VITALS: BP 162/72; TEMP 98.2; O2SAT 96
[2022-09-28] MEDS: zolPIDEM TARTRATE 5 MG TAB PO SCH (20:33)
[2022-09-28] MEDS: ASPIRIN 81MG ENTERIC TABLET PO SCH (20:33)
[2022-09-28] MEDS: ROSUVASTATIN 10 MG TAB (CRESTOR) PO SCH (20:34)
[2022-09-28] MEDS: ESCITALOPRAM OXALATE 10 MG TAB (LEXAPRO) PO SCH (20:34)
[2022-09-28 22:00] VITALS: BP 163/71
[2022-09-29 04:30] VITALS: TEMP 98.1; O2SAT 94
[2022-09-29 06:38] VITALS: BP 160/63
[2022-09-29 06:49] LABS: BASO # 0.1 10^3/uL (0.0-0.2); EOS # 0.3 10^3/uL (0.0-0.5); EOS % 3.7 % (0.0-3.0); HEMATOCRIT 26.8 % (36.0-47.0); HEMOGLOBIN 8.8 g/dl (12.0-15.5); LYMPH % 28.1 % (24.0-44.0); MEAN CORPUSCULAR HEMOGLOBIN 32.2 pg (27.0-33.0); MEAN CORPUSCULAR HGB CONC 32.8 g/dl (32.0-36.5); MEAN CORPUSCULAR VOLUME 98.2 fl (80.0-96.0); MONO # 0.6 10^3/uL (0.0-0.8); NEUTROPHILS # 4.2 10^3/uL (1.5-8.5); NEUTROPHILS % 58.9 % (36.0-66.0); PLATELET COUNT, AUTOMATED 256 10^3/uL (150-450); RED BLOOD COUNT 2.73 10^6/uL (4.00-5.40); WHITE BLOOD COUNT 7.1 10^3/uL (4.0-10.0)
[2022-09-29 07:27] LABS: CALCIUM LEVEL 8.3 MG/DL (8.3-10.6); CREATININE FOR GFR 1.13 MG/DL (0.55-1.30); GLOMERULAR FILTRATION RATE 49.2 (>32); MAGNESIUM LEVEL 2.3 MG/DL (1.8-2.4)
[2022-09-29] MEDS: FUROSEMIDE 20 MG TAB PO SCH (10:21)
[2022-09-29] MEDS: OCUVITE 1 TAB PO SCH (10:21)
[2022-09-29] MEDS: lisinopriL 40MG TAB PO SCH (10:23)
[2022-09-29] MEDS: METOPROLOL TART 25 MG TABLET PO SCH ×2 (10:25→21:33)
[2022-09-29] MEDS: DOCUSATE SODIUM 100MG CAPSULE PO SCH (10:25)
[2022-09-29 14:00] VITALS: BP 154/65; TEMP 98.1; O2SAT 96
[2022-09-29] MEDS: RIVAROXABAN 15MG TAB (XARELTO) PO SCH (17:55)
[2022-09-29 20:55] VITALS: BP 155/70; TEMP 98.1; O2SAT 97
[2022-09-29] MEDS: ROSUVASTATIN 10 MG TAB (CRESTOR) PO SCH (21:32)
[2022-09-29] MEDS: ASPIRIN 81MG ENTERIC TABLET PO SCH (21:32)
[2022-09-29] MEDS: ESCITALOPRAM OXALATE 10 MG TAB (LEXAPRO) PO SCH (21:32)
[2022-09-29] MEDS: zolPIDEM TARTRATE 5 MG TAB PO SCH (21:34)
[2022-09-29] MEDS: ACETAMINOPHEN TAB 650MG DOSE (2X325MG) PO PRN (22:25)
[2022-09-30 05:10] VITALS: BP 155/69; TEMP 97.9; O2SAT 96
[2022-09-30 06:56] LABS: BASO # 0.1 10^3/uL (0.0-0.2); BASO % 0.8 % (0.0-1.0); EOS # 0.2 10^3/uL (0.0-0.5); EOS % 2.8 % (0.0-3.0); HEMATOCRIT 28.5 % (36.0-47.0); HEMOGLOBIN 9.3 g/dl (12.0-15.5); LYMPH # 1.9 10^3/uL (1.5-5.0); LYMPH % 24.6 % (24.0-44.0); MEAN CORPUSCULAR HEMOGLOBIN 32.1 pg (27.0-33.0); MEAN CORPUSCULAR HGB CONC 32.6 g/dl (32.0-36.5); MEAN CORPUSCULAR VOLUME 98.3 fl (80.0-96.0); MONO # 0.6 10^3/uL (0.0-0.8); MONO % 7.8 % (2.0-8.0); NEUTROPHILS % 63.7 % (36.0-66.0); PLATELET COUNT, AUTOMATED 261 10^3/uL (150-450); WHITE BLOOD COUNT 7.9 10^3/uL (4.0-10.0)
[2022-09-30 07:20] LABS: CALCIUM LEVEL 8.9 MG/DL (8.3-10.6); CREATININE FOR GFR 1.1 MG/DL (0.55-1.30); GLOMERULAR FILTRATION RATE 50.7 (>32); MAGNESIUM LEVEL 1.8 MG/DL (1.8-2.4); POTASSIUM SERUM 3.9 MMOL/L (3.5-5.1)
[2022-09-30] MEDS ORDERED: amLODIPine 5 MG TAB PO SCH (09:00)
[2022-09-30] MEDS: OCUVITE 1 TAB PO SCH (09:27)
[2022-09-30] MEDS: METOPROLOL TART 25 MG TABLET PO SCH ×2 (09:28→20:21)
[2022-09-30] MEDS: FUROSEMIDE 20 MG TAB PO SCH (09:28)
[2022-09-30] MEDS: DOCUSATE SODIUM 100MG CAPSULE PO SCH (09:28)
[2022-09-30] MEDS: lisinopriL 40MG TAB PO SCH (09:28)
[2022-09-30] MEDS ORDERED: **hydrALAZINE HCL** 25 MG TAB PO PRN (10:30)
[2022-09-30] MEDS ORDERED: amLODIPine 5 MG TAB PO ONE (10:30)
[2022-09-30 14:00] VITALS: BP 131/54; TEMP 97.9; O2SAT 100
[2022-09-30 14:39] VITALS: BP 156/58
[2022-09-30] MEDS: RIVAROXABAN 15MG TAB (XARELTO) PO SCH (18:24)
[2022-09-30 19:33] VITALS: BP 136/69; TEMP 98.2; O2SAT 96
[2022-09-30] MEDS: ACETAMINOPHEN TAB 650MG DOSE (2X325MG) PO PRN (20:20)
[2022-09-30] MEDS: ESCITALOPRAM OXALATE 10 MG TAB (LEXAPRO) PO SCH (20:20)
[2022-09-30] MEDS: ASPIRIN 81MG ENTERIC TABLET PO SCH (20:20)
[2022-09-30] MEDS: ROSUVASTATIN 10 MG TAB (CRESTOR) PO SCH (20:21)
[2022-09-30] MEDS: zolPIDEM TARTRATE 5 MG TAB PO SCH (20:21)
[2022-10-01 06:20] VITALS: BP 140/67; TEMP 98.2; O2SAT 96
[2022-10-01] MEDS ORDERED: MIRALAX *UNIT DOSE* 17GM PACKET PO SCH (09:00)
[2022-10-01] MEDS: DOCUSATE SODIUM 100MG CAPSULE PO SCH (09:16)
[2022-10-01 09:17] VITALS: BP 140/67
[2022-10-01] MEDS: FUROSEMIDE 20 MG TAB PO SCH (09:17)
[2022-10-01] MEDS: OCUVITE 1 TAB PO SCH (09:17)
[2022-10-01] MEDS: lisinopriL 40MG TAB PO SCH (09:17)
[2022-10-01] MEDS: METOPROLOL TART 25 MG TABLET PO SCH (09:17)
[2022-10-01] MEDS ORDERED: AMLO1TAB25 PO (11:21)
[2022-10-01] MEDS ORDERED: XARE15TA PO (11:21)
[2022-10-01] MEDS ORDERED: LISI40TA4 PO (11:21)
[2022-10-01] MEDS ORDERED: CRES10TA PO (11:21)
[2022-10-01] MEDS ORDERED: MIRA1POW3 PO (11:27)
[2022-10-01] MEDS ORDERED: ROSU20TA61 PO (11:27)
[2022-10-01] MEDS ORDERED: MAGN400T35 PO (11:36)
== END 2022-10-01 15:48 | disposition home health service (06) | DRG 66 ==
LOC: M ED 14:24 → M ED INP 14:25 → OBSVTOIN 18:39 → ENRESERV 19:54 → M MSPAV 21:54
PROVIDERS: ADMIT Internal Medicine; ATTEND Internal Medicine
DX: I63.9 Cerebral infarction, unspecified (principal); R29.6 Repeated falls; F32.A Depression, unspecified; I11.0 Hypertensive heart disease with heart failure; Z79.82 Long term (current) use of aspirin; Z79.01 Long term (current) use of anticoagulants; H35.30 Unspecified macular degeneration; I25.10 Atherosclerotic heart disease of native coronary artery without angina pectoris; I48.91 Unspecified atrial fibrillation; M79.7 Fibromyalgia; G89.29 Other chronic pain; I65.29 Occlusion and stenosis of unspecified carotid artery; R26.9 Unspecified abnormalities of gait and mobility; M47.9 Spondylosis, unspecified; M43.10 Spondylolisthesis, site unspecified; E83.42 Hypomagnesemia; R54 Age-related physical debility; I50.9 Heart failure, unspecified; Z79.899 Other long term (current) drug therapy; Z88.0 Allergy status to penicillin

== ENCOUNTER 2022-10-12 20:29 | Observation (INO) | payer MEDICARE ==
[~2022-10-12] VITALS: Ht 160 cm; Wt 59.1 kg
[~2022-10-12 20:29] MED LIST changes: +AMLO1TAB25 PO; +LISI40TA4 PO; +MAGN400T35 PO; +METO25TA4 PO; +MIRA1POW3 PO; +PRESCAP PO; +ROSU10TA6 PO; +XARE15TA PO
[2022-10-12 21:52] LABS: INR 1.53; PROTHROMBIN TIME 18.7 SECONDS (12.5-14.5)
[2022-10-12 21:53] LABS: BASO # 0.1 10^3/uL (0.0-0.2); BASO % 0.5 % (0.0-1.0); EOS # 0.1 10^3/uL (0.0-0.5); EOS % 1.2 % (0.0-3.0); HEMATOCRIT 34.1 % (36.0-47.0); HEMOGLOBIN 11.4 g/dl (12.0-15.5); LYMPH # 2.5 10^3/uL (1.5-5.0); LYMPH % 22.1 % (24.0-44.0); MEAN CORPUSCULAR HEMOGLOBIN 32.9 pg (27.0-33.0); MEAN CORPUSCULAR HGB CONC 33.4 g/dl (32.0-36.5); MEAN CORPUSCULAR VOLUME 98.3 fl (80.0-96.0); MONO % 8.4 % (2.0-8.0); NEUTROPHILS # 7.7 10^3/uL (1.5-8.5); NEUTROPHILS % 67.5 % (36.0-66.0); PARTIAL THROMBOPLASTIN TIME 40.5 SECONDS (24.8-34.2); PLATELET COUNT, AUTOMATED 344 10^3/uL (150-450); RED BLOOD COUNT 3.47 10^6/uL (4.00-5.40); WHITE BLOOD COUNT 11.4 10^3/uL (4.0-10.0)
[2022-10-12 21:59] LABS: RSV AMPLIFICATION NEGATIVE (NEGATIVE)
[2022-10-12 22:00] LABS: ALBUMIN 3.6 G/DL (3.2-5.2); ALKALINE PHOSPHATASE 104 U/L (46-116); ALT/SGPT 14 U/L (7.0-40); AST/SGOT 15 U/L (<34); BILIRUBIN,DIRECT < 0.1 MG/DL (<0.4); BILIRUBIN,TOTAL 0.3 MG/DL (0.3-1.2); BLOOD UREA NITROGEN 24 MG/DL (9-23); CALCIUM LEVEL 9.2 MG/DL (8.3-10.6); CARBON DIOXIDE LEVEL 27 MMOL/L (20-31); CHLORIDE LEVEL 104 MMOL/L (98-107); CREATININE FOR GFR 1.43 MG/DL (0.55-1.30); GLOMERULAR FILTRATION RATE 37.5 (>32); GLUCOSE, FASTING 137 MG/DL (74-106); POTASSIUM SERUM 3.8 MMOL/L (3.5-5.1); SODIUM LEVEL 139 MMOL/L (136-145); TOTAL PROTEIN 6.8 G/DL (5.7-8.2)
[2022-10-12] MEDS ORDERED: ACETAMINOPHEN 500 MG TAB PO ONE (22:20)
[2022-10-12 22:33] LABS: CK-MB VALUE MASS < 1.0 NG/ML (<3.6)
[2022-10-12 22:38] LABS: CPK CREATINE PHOSPHOKINASE 59 U/L (34-145); MB/CK RELATIVE INDEX 1.69 (< OR =4)
[2022-10-12 23:21] LABS: CK-MB VALUE MASS < 1.0 NG/ML (<3.6)
[2022-10-12 23:26] LABS: CPK CREATINE PHOSPHOKINASE 56 U/L (34-145); MB/CK RELATIVE INDEX 1.78 (< OR =4)
[2022-10-13] MEDS ORDERED: AMLO1TAB25 PO (00:28)
[2022-10-13] MEDS ORDERED: ROSU20TA61 PO (00:30)
[2022-10-13] MEDS ORDERED: XARE15TA PO (00:30)
[2022-10-13] MEDS ORDERED: MAG-400T7 PO (00:30)
[2022-10-13] MEDS ORDERED: LISI40TA4 PO (00:30)
[2022-10-13] MEDS ORDERED: HOME MED LIST COMPLETE! XX SCH (00:35)
[2022-10-13] MEDS ORDERED: LR 1,000 ML IV SCH (00:45)
[2022-10-13] MEDS ORDERED: POLYVINYL ALCOHOL OPHTH SOLN 15ML (LIQUITEARS) OU PRN (00:45)
[2022-10-13 01:34] VITALS: BP 147/88; TEMP 96.8; O2SAT 97
[2022-10-13] MEDS ORDERED: traMADol 50 MG TAB PO PRN (01:50)
[2022-10-13] MEDS: RAMELTEON 8 MG TAB (ROZEREM) PO PRN ×2 (01:54→21:49)
[2022-10-13] MEDS: ACETAMINOPHEN TAB 650MG DOSE (2X325MG) PO PRN ×2 (01:55→20:15)
[2022-10-13 03:53] LABS: APPEARANCE, URINE CLEAR (CLEAR); BACTERIA, URINE AUTO NEGATIVE (NEGATIVE); BILIRUBIN, URINE AUTO NEGATIVE (NEGATIVE); BLOOD, URINE BLOOD NEGATIVE (NEGATIVE); COLOR, URINE STRAW (YELLOW); GLUCOSE, URINE (UA) AUTO NEGATIVE (NEGATIVE); KETONE, URINE AUTO NEGATIVE (NEGATIVE); LEUKOCYTE ESTERASE, URINE AUTO 3+ (NEGATIVE); NITRITE, URINE AUTO NEGATIVE (NEGATIVE); PROTEIN, URINE AUTO NEGATIVE (NEGATIVE); RBC, URINE AUTO 1 /HPF (0-3); SPECIFIC GRAVITY URINE AUTO 1.009 (1.002-1.035); SQUAMOUS EPITHELIAL CELL UR AU 0 /HPF (0-6); UROBILINOGEN, URINE AUTO 0.2 mg/dL (0.0-2.0); WBC, URINE AUTO 20 /HPF (0-3)
[2022-10-13 04:11] LABS: TOTAL PROTEIN,RANDOM URINE 6.1 MG/DL (0.0-14.0)
[2022-10-13 05:59] VITALS: BP 114/54; TEMP 97.7; O2SAT 95
[2022-10-13 06:25] LABS: HEMATOCRIT 31.2 % (36.0-47.0); HEMOGLOBIN 10.5 g/dl (12.0-15.5); MEAN CORPUSCULAR HEMOGLOBIN 32.4 pg (27.0-33.0); MEAN CORPUSCULAR HGB CONC 33.7 g/dl (32.0-36.5); MEAN CORPUSCULAR VOLUME 96.3 fl (80.0-96.0); PLATELET COUNT, AUTOMATED 279 10^3/uL (150-450); RED BLOOD COUNT 3.24 10^6/uL (4.00-5.40); WHITE BLOOD COUNT 10.1 10^3/uL (4.0-10.0)
[2022-10-13 06:53] LABS: BLOOD UREA NITROGEN 22 MG/DL (9-23); CALCIUM LEVEL 8.9 MG/DL (8.3-10.6); CARBON DIOXIDE LEVEL 26 MMOL/L (20-31); CHLORIDE LEVEL 104 MMOL/L (98-107); CREATININE FOR GFR 1.11 MG/DL (0.55-1.30); GLOMERULAR FILTRATION RATE 50.2 (>32); GLUCOSE, FASTING 101 MG/DL (74-106); MAGNESIUM LEVEL 1.8 MG/DL (1.8-2.4); POTASSIUM SERUM 3.7 MMOL/L (3.5-5.1); SODIUM LEVEL 140 MMOL/L (136-145)
[2022-10-13 07:41] LABS: IRON (FE) 52 UG/DL (50-170); PERCENT SATURATION 17.7 % (13.2-45.0); TOTAL IRON BINDING CAPACITY 294 UG/DL (250-425)
[2022-10-13 07:42] LABS: FERRITIN 156.3 NG/ML (7.3-270.7); FOLATE > 24.00 NG/ML (>5.4)
[2022-10-13 07:43] LABS: VITAMIN B12 LEVEL 966 PG/ML (211-911)
[2022-10-13] MEDS ORDERED: DOCUSATE SODIUM 100MG CAPSULE PO SCH (09:00)
[2022-10-13] MEDS ORDERED: ONDANSETRON 4MG 2ML VIAL IV PRN (09:05)
[2022-10-13] MEDS: SENOKOT S TAB PO SCH ×2 (10:00→20:47)
[2022-10-13] MEDS: RIVAROXABAN 15MG TAB (XARELTO) PO SCH (10:00)
[2022-10-13] MEDS: MAGNESIUM OXIDE 400MG TAB (MAG-OX) PO SCH (10:01)
[2022-10-13] MEDS: PANTOPRAZOLE 40MG TAB (PROTONIX) PO SCH (10:01)
[2022-10-13] MEDS: METOPROLOL TART 25 MG TABLET PO SCH ×2 (10:01→20:47)
[2022-10-13] MEDS: MIRALAX *UNIT DOSE* 17GM PACKET PO SCH (10:01)
[2022-10-13 14:00] VITALS: BP 122/68; TEMP 97.5
[2022-10-13] MEDS: LACTULOSE 20GM/30ML SYRUP UDC PO SCH ×2 (16:56→21:06)
[2022-10-13 20:00] VITALS: BP 130/72; TEMP 98.1
[2022-10-13] MEDS: ESCITALOPRAM OXALATE 10 MG TAB (LEXAPRO) PO SCH (20:15)
[2022-10-13] MEDS: ROSUVASTATIN 10 MG TAB (CRESTOR) PO SCH (20:47)
[2022-10-13] MEDS: ASPIRIN 81MG ENTERIC TABLET PO SCH (20:47)
[2022-10-13] MEDS ORDERED: amLODIPine 5 MG TAB PO SCH (21:00)
[2022-10-14] MEDS: LACTULOSE 20GM/30ML SYRUP UDC PO SCH ×4 (05:09→23:14)
[2022-10-14 05:31] VITALS: BP 135/80; TEMP 97.9; O2SAT 98
[2022-10-14 06:06] LABS: BASO # 0.1 10^3/uL (0.0-0.2); BASO % 0.7 % (0.0-1.0); EOS # 0.2 10^3/uL (0.0-0.5); EOS % 2.5 % (0.0-3.0); HEMATOCRIT 30.7 % (36.0-47.0); HEMOGLOBIN 10.1 g/dl (12.0-15.5); LYMPH # 2.7 10^3/uL (1.5-5.0); LYMPH % 33.6 % (24.0-44.0); MEAN CORPUSCULAR HEMOGLOBIN 32.1 pg (27.0-33.0); MEAN CORPUSCULAR HGB CONC 32.9 g/dl (32.0-36.5); MEAN CORPUSCULAR VOLUME 97.5 fl (80.0-96.0); MONO # 0.6 10^3/uL (0.0-0.8); MONO % 7.6 % (2.0-8.0); NEUTROPHILS # 4.5 10^3/uL (1.5-8.5); NEUTROPHILS % 55.4 % (36.0-66.0); PLATELET COUNT, AUTOMATED 268 10^3/uL (150-450); RED BLOOD COUNT 3.15 10^6/uL (4.00-5.40); WHITE BLOOD COUNT 8.1 10^3/uL (4.0-10.0)
[2022-10-14 06:23] LABS: CALCIUM LEVEL 8.8 MG/DL (8.3-10.6); CREATININE FOR GFR 1.19 MG/DL (0.55-1.30); GLOMERULAR FILTRATION RATE 46.3 (>32); POTASSIUM SERUM 3.6 MMOL/L (3.5-5.1)
[2022-10-14] MEDS: METOPROLOL TART 25 MG TABLET PO SCH ×2 (09:00→20:57)
[2022-10-14] MEDS: MIRALAX *UNIT DOSE* 17GM PACKET PO SCH (09:42)
[2022-10-14] MEDS: SENOKOT S TAB PO SCH ×2 (09:42→20:48)
[2022-10-14] MEDS: RIVAROXABAN 15MG TAB (XARELTO) PO SCH (09:42)
[2022-10-14] MEDS: MAGNESIUM OXIDE 400MG TAB (MAG-OX) PO SCH (09:42)
[2022-10-14] MEDS: PANTOPRAZOLE 40MG TAB (PROTONIX) PO SCH (09:42)
[2022-10-14] MEDS ORDERED: DIGOXIN 0.25 MG TAB PO ONE ×2 (13:00→18:00)
[2022-10-14 14:09] VITALS: BP_SYST 121; BP_SYST 122; BP_SYST 132; BP_DIAS 67; BP_DIAS 69; BP_DIAS 90
[2022-10-14 14:30] VITALS: BP 127/71; TEMP 98; O2SAT 98
[2022-10-14] MEDS: ACETAMINOPHEN TAB 650MG DOSE (2X325MG) PO PRN ×2 (17:02→20:54)
[2022-10-14] MEDS: ESCITALOPRAM OXALATE 10 MG TAB (LEXAPRO) PO SCH (20:48)
[2022-10-14] MEDS: ASPIRIN 81MG ENTERIC TABLET PO SCH (20:54)
[2022-10-14] MEDS: ROSUVASTATIN 10 MG TAB (CRESTOR) PO SCH (20:54)
[2022-10-14] MEDS ORDERED: METOPROLOL TART 12.5 MG PER 1/2 TAB PO SCH (21:00)
[2022-10-14 21:09] VITALS: TEMP 97.7; O2SAT 97
[2022-10-14] MEDS: RAMELTEON 8 MG TAB (ROZEREM) PO PRN (21:52)
[2022-10-15] MEDS: LACTULOSE 20GM/30ML SYRUP UDC PO SCH (05:27)
[2022-10-15 05:55] VITALS: BP 146/86; TEMP 96.4; O2SAT 96
[2022-10-15 06:08] LABS: BASO # 0.1 10^3/uL (0.0-0.2); BASO % 0.8 % (0.0-1.0); EOS # 0.2 10^3/uL (0.0-0.5); EOS % 2.8 % (0.0-3.0); HEMATOCRIT 29.7 % (36.0-47.0); LYMPH # 2.6 10^3/uL (1.5-5.0); LYMPH % 34.3 % (24.0-44.0); MEAN CORPUSCULAR HEMOGLOBIN 32.6 pg (27.0-33.0); MEAN CORPUSCULAR HGB CONC 33.7 g/dl (32.0-36.5); MEAN CORPUSCULAR VOLUME 96.7 fl (80.0-96.0); MONO # 0.6 10^3/uL (0.0-0.8); MONO % 8.2 % (2.0-8.0); NEUTROPHILS # 4.1 10^3/uL (1.5-8.5); NEUTROPHILS % 53.6 % (36.0-66.0); PLATELET COUNT, AUTOMATED 260 10^3/uL (150-450); RED BLOOD COUNT 3.07 10^6/uL (4.00-5.40); WHITE BLOOD COUNT 7.6 10^3/uL (4.0-10.0)
[2022-10-15 06:12] LABS: CALCIUM LEVEL 9.4 MG/DL (8.3-10.6); CREATININE FOR GFR 1.06 MG/DL (0.55-1.30); POTASSIUM SERUM 3.8 MMOL/L (3.5-5.1)
[2022-10-15] MEDS: ACETAMINOPHEN TAB 650MG DOSE (2X325MG) PO PRN (06:55)
[2022-10-15] MEDS ORDERED: FURO20TA2 PO (08:46)
[2022-10-15] MEDS ORDERED: ACET-897 PO (08:46)
[2022-10-15] MEDS ORDERED: SENN-52 PO (08:46)
[2022-10-15] MEDS ORDERED: LISI10TA22 PO (08:46)
[2022-10-15] MEDS ORDERED: DIGOXIN 0.125 MG TAB PO SCH (09:00)
[2022-10-15 09:24] VITALS: BP 138/75
[2022-10-15] MEDS: SENOKOT S TAB PO SCH (09:24)
[2022-10-15] MEDS: MIRALAX *UNIT DOSE* 17GM PACKET PO SCH (09:24)
[2022-10-15] MEDS: METOPROLOL TART 25 MG TABLET PO SCH (09:24)
[2022-10-15] MEDS: MAGNESIUM OXIDE 400MG TAB (MAG-OX) PO SCH (09:24)
[2022-10-15] MEDS: RIVAROXABAN 15MG TAB (XARELTO) PO SCH (09:24)
[2022-10-15] MEDS: PANTOPRAZOLE 40MG TAB (PROTONIX) PO SCH (09:24)
== END 2022-10-15 11:55 | disposition home health service (06) ==
LOC: M ED 20:29 → INTOOBSV 10-13 00:41 → M ED INP 10-13 00:41 → M MS5PR 10-13 01:27
PROVIDERS: ADMIT Internal Medicine; ATTEND Internal Medicine Nephrology
DX: R26.89 Other abnormalities of gait and mobility (principal); I69.344 Monoplegia of lower limb following cerebral infarction affecting left non-dominant side; R29.6 Repeated falls; N17.9 Acute kidney failure, unspecified; N18.30 Chronic kidney disease, stage 3 unspecified; R42 Dizziness and giddiness; D63.1 Anemia in chronic kidney disease; I50.20 Unspecified systolic (congestive) heart failure; S50.12XA Contusion of left forearm, initial encounter; I65.21 Occlusion and stenosis of right carotid artery; I63.532 Cerebral infarction due to unspecified occlusion or stenosis of left posterior cerebral artery; H35.30 Unspecified macular degeneration; I48.91 Unspecified atrial fibrillation; I25.10 Atherosclerotic heart disease of native coronary artery without angina pectoris; Z98.61 Coronary angioplasty status; M79.7 Fibromyalgia; G43.909 Migraine, unspecified, not intractable, without status migrainosus; Z88.0 Allergy status to penicillin; K21.9 Gastro-esophageal reflux disease without esophagitis; F32.A Depression, unspecified; F41.9 Anxiety disorder, unspecified; Z79.01 Long term (current) use of anticoagulants; Z79.82 Long term (current) use of aspirin; Z79.899 Other long term (current) drug therapy
CPT/HCPCS: 36415; 70450; 71045; 72125; 73090; 73564; 73590; 80048; 80076; 81001; 82550; 82553; 82570; 82607; 82728; 82746; 83550; 83735; 83935; 84156; 84300; 84484; 85025; 85027; 85610; 85730; 86850; 86900; 86901; 87631; 93005; 93041; 94760; 95819; 96374; 97116; 97161; 97165; 97530; 99285; G0378

== ENCOUNTER 2022-10-29 09:39 | Inpatient (IN) | payer MEDICARE ==
[~2022-10-29] VITALS: Ht 160 cm; Wt 66.1 kg
[~2022-10-29 09:39] MED LIST changes: +ACET-897 PO; +MAG-400T7 PO; +SENN-52 PO
[2022-10-29] MEDS ORDERED: ONDANSETRON 4MG 2ML VIAL IV ONE (10:15)
[2022-10-29] MEDS: MORPHINE 2 MG/ML 1ML VIAL IV PRN ×2 (10:40→11:55)
[2022-10-29 11:28] LABS: MEAN CORPUSCULAR HEMOGLOBIN 32.2 pg (27.0-33.0); MEAN CORPUSCULAR HGB CONC 32.3 g/dl (32.0-36.5); MEAN CORPUSCULAR VOLUME 99.7 fl (80.0-96.0); PLATELET COUNT, AUTOMATED 257 10^3/uL (150-450); RED BLOOD COUNT 3.11 10^6/uL (4.00-5.40); WHITE BLOOD COUNT 13.4 10^3/uL (4.0-10.0)
[2022-10-29] MEDS ORDERED: MED REC IN PROGRESS XX SCH (11:45)
[2022-10-29] MEDS ORDERED: traMADol 50 MG TAB PO PRN ×2 (11:50)
[2022-10-29] MEDS ORDERED: METOPROLOL TART 50 MG TAB PO ONE (11:55)
[2022-10-29] MEDS ORDERED: MED REC CURRENTLY UNOBTAINABLE XX SCH (12:00)
[2022-10-29 12:03] LABS: CALCIUM LEVEL 9.7 MG/DL (8.3-10.6); CREATININE FOR GFR 1.19 MG/DL (0.55-1.30); GLOMERULAR FILTRATION RATE 46.3 (>32); POTASSIUM SERUM 4.1 MMOL/L (3.5-5.1)
[2022-10-29] MEDS ORDERED: MORPHINE 2 MG/ML 1ML VIAL IV ONE (12:30)
[2022-10-29] MEDS ORDERED: METOPROLOL TART 25 MG TABLET PO ONE (12:30)
[2022-10-29] MEDS ORDERED: ACET-683 PO (12:37)
[2022-10-29] MEDS ORDERED: FURO20TA2 PO (12:37)
[2022-10-29] MEDS ORDERED: LISI10TA22 PO (12:37)
[2022-10-29] MEDS ORDERED: HOME MED LIST COMPLETE! XX SCH (12:45)
[2022-10-29 13:05] LABS: RED BLOOD COUNT 3.25 10^6/uL (4.00-5.40); WHITE BLOOD COUNT 16.1 10^3/uL (4.0-10.0)
[2022-10-29 13:06] LABS: HEMATOCRIT 32.5 % (36.0-47.0); HEMOGLOBIN 10.5 g/dl (12.0-15.5); MEAN CORPUSCULAR HEMOGLOBIN 32.3 pg (27.0-33.0); MEAN CORPUSCULAR HGB CONC 32.3 g/dl (32.0-36.5); PLATELET COUNT, AUTOMATED 263 10^3/uL (150-450)
[2022-10-29] MEDS ORDERED: MORPHINE 2 MG/ML 1ML VIAL IV PRN (14:25)
[2022-10-29] MEDS ORDERED: PERCOCET 5MG/325MG TAB PO PRN (14:25)
[2022-10-29] MEDS ORDERED: amLODIPine 5 MG TAB PO ONE (16:20)
[2022-10-29] MEDS ORDERED: MORPHINE 4 MG/ML 1ML VIAL IV ONE (16:20)
[2022-10-29] MEDS ORDERED: ACETAMINOPHEN 500 MG TAB PO PRN (16:20)
[2022-10-29] MEDS ORDERED: KETOROLAC 30 MG/ML 1ML VIAL IV ONE ×2 (16:20→17:35)
[2022-10-29] MEDS ORDERED: POLYVINYL ALCOHOL OPHTH SOLN 15ML (LIQUITEARS) OU PRN (16:20)
[2022-10-29 17:25] VITALS: BP 168/86; TEMP 98.1; O2SAT 92
[2022-10-29] MEDS ORDERED: DIGOXIN INJ 0.5 MG/2 ML AMP IV STA (18:16)
[2022-10-29] MEDS: METOPROLOL TART 25 MG TABLET PO SCH ×2 (18:20→23:39)
[2022-10-29] MEDS ORDERED: ISOVUE-370 76% 100ML VIAL As Ordered ONE (18:44)
[2022-10-29 18:47] LABS: HEMATOCRIT 31.1 % (36.0-47.0); HEMOGLOBIN 10.2 g/dl (12.0-15.5); MEAN CORPUSCULAR HEMOGLOBIN 32.5 pg (27.0-33.0); MEAN CORPUSCULAR HGB CONC 32.8 g/dl (32.0-36.5); PLATELET COUNT, AUTOMATED 312 10^3/uL (150-450); RED BLOOD COUNT 3.14 10^6/uL (4.00-5.40); WHITE BLOOD COUNT 14.6 10^3/uL (4.0-10.0)
[2022-10-29 19:00] VITALS: BP 152/95; TEMP 98.1; O2SAT 98
[2022-10-29 19:40] VITALS: BP 135/93; TEMP 98.1; O2SAT 95
[2022-10-29] MEDS: ASPIRIN 81MG ENTERIC TABLET PO SCH (20:27)
[2022-10-29] MEDS: RIVAROXABAN 15MG TAB (XARELTO) PO SCH (20:28)
[2022-10-29] MEDS: ROSUVASTATIN 10 MG TAB (CRESTOR) PO SCH (20:28)
[2022-10-29] MEDS: ESCITALOPRAM OXALATE 10 MG TAB (LEXAPRO) PO SCH (20:29)
[2022-10-29] MEDS ORDERED: METOPROLOL TART 25 MG TABLET PO SCH (21:00)
[2022-10-29] MEDS ORDERED: FUROSEMIDE 20 MG TAB PO SCH (21:00)
[2022-10-29] MEDS: zolPIDEM TARTRATE 5 MG TAB PO SCH (21:04)
[2022-10-29 23:30] VITALS: O2SAT 88
[2022-10-29 23:31] VITALS: BP 108/60
[2022-10-29 23:32] VITALS: O2SAT 90
[2022-10-30 05:00] VITALS: BP_SYST 122; BP_SYST 140; BP_SYST 142; BP_DIAS 63; BP_DIAS 79; TEMP 97.7; O2SAT 96
[2022-10-30 05:45] LABS: BASO # 0.1 10^3/uL (0.0-0.2); BASO % 0.5 % (0.0-1.0); EOS % 0.4 % (0.0-3.0); HEMATOCRIT 30.2 % (36.0-47.0); HEMOGLOBIN 9.9 g/dl (12.0-15.5); LYMPH # 1.6 10^3/uL (1.5-5.0); LYMPH % 14.5 % (24.0-44.0); MEAN CORPUSCULAR HEMOGLOBIN 33.1 pg (27.0-33.0); MEAN CORPUSCULAR HGB CONC 32.8 g/dl (32.0-36.5); MONO # 0.7 10^3/uL (0.0-0.8); MONO % 6.3 % (2.0-8.0); NEUTROPHILS # 8.4 10^3/uL (1.5-8.5); NEUTROPHILS % 78.1 % (36.0-66.0); PLATELET COUNT, AUTOMATED 257 10^3/uL (150-450); RED BLOOD COUNT 2.99 10^6/uL (4.00-5.40); WHITE BLOOD COUNT 10.8 10^3/uL (4.0-10.0)
[2022-10-30] MEDS ORDERED: DIGOXIN INJ 0.5 MG/2 ML AMP IV ONE ×2 (06:00)
[2022-10-30 06:13] LABS: CALCIUM LEVEL 8.7 MG/DL (8.3-10.6); CREATININE FOR GFR 1.35 MG/DL (0.55-1.30); DIGOXIN LEVEL 0.8 NG/ML (0.8-2.0); GLOMERULAR FILTRATION RATE 40.1 (>32); MAGNESIUM LEVEL 2.2 MG/DL (1.8-2.4); POTASSIUM SERUM 4.6 MMOL/L (3.5-5.1)
[2022-10-30] MEDS: METOPROLOL TART 25 MG TABLET PO SCH ×4 (06:22→23:27)
[2022-10-30] MEDS ORDERED: NS 1,000 ML IV SCH (06:25)
[2022-10-30 09:35] VITALS: BP 126/63; O2SAT 96
[2022-10-30 14:00] VITALS: BP 143/66; TEMP 97.7; O2SAT 94
[2022-10-30] MEDS: PERCOCET 5MG/325MG TAB PO PRN (14:12)
[2022-10-30] MEDS: RIVAROXABAN 15MG TAB (XARELTO) PO SCH (20:12)
[2022-10-30] MEDS: ASPIRIN 81MG ENTERIC TABLET PO SCH (20:12)
[2022-10-30] MEDS: ROSUVASTATIN 10 MG TAB (CRESTOR) PO SCH (20:12)
[2022-10-30] MEDS: ESCITALOPRAM OXALATE 10 MG TAB (LEXAPRO) PO SCH (20:12)
[2022-10-30 21:10] VITALS: BP 121/64; TEMP 99.5; O2SAT 97
[2022-10-31] MEDS: PERCOCET 5MG/325MG TAB PO PRN ×2 (02:27→08:29)
[2022-10-31 05:42] VITALS: TEMP 98.6
[2022-10-31] MEDS: METOPROLOL TART 25 MG TABLET PO SCH (05:42)
[2022-10-31] MEDS ORDERED: METOPROLOL SUCC (TopROL XL) 50MG **XL** TAB PO ONE (07:00)
[2022-10-31] MEDS: MIRALAX *UNIT DOSE* 17GM PACKET PO SCH ×2 (10:10→21:49)
[2022-10-31] MEDS ORDERED: MOM 30ML SUSPENSION UDC PO ONE (11:00)
[2022-10-31] MEDS: SENOKOT S TAB PO SCH ×2 (11:05→21:48)
[2022-10-31 14:00] VITALS: BP 135/73; TEMP 98.2; O2SAT 91
[2022-10-31 14:07] LABS: BASO # 0.1 10^3/uL (0.0-0.2); BASO % 0.4 % (0.0-1.0); EOS # 0.2 10^3/uL (0.0-0.5); EOS % 1.4 % (0.0-3.0); HEMATOCRIT 30.3 % (36.0-47.0); HEMOGLOBIN 9.7 g/dl (12.0-15.5); LYMPH # 1.9 10^3/uL (1.5-5.0); LYMPH % 15.2 % (24.0-44.0); MEAN CORPUSCULAR HEMOGLOBIN 32.4 pg (27.0-33.0); MEAN CORPUSCULAR VOLUME 101.3 fl (80.0-96.0); MONO % 7.8 % (2.0-8.0); NEUTROPHILS # 9.2 10^3/uL (1.5-8.5); NEUTROPHILS % 74.8 % (36.0-66.0); PLATELET COUNT, AUTOMATED 304 10^3/uL (150-450); RED BLOOD COUNT 2.99 10^6/uL (4.00-5.40); WHITE BLOOD COUNT 12.3 10^3/uL (4.0-10.0)
[2022-10-31 14:27] LABS: CALCIUM LEVEL 8.5 MG/DL (8.3-10.6); CREATININE FOR GFR 0.97 MG/DL (0.55-1.30); GLOMERULAR FILTRATION RATE 58.7 (>32); POTASSIUM SERUM 4.5 MMOL/L (3.5-5.1)
[2022-10-31 14:30] LABS: C REACTIVE PROTEIN QUANTITATIV 6.2 MG/DL (<1.0)
[2022-10-31 14:32] LABS: PROLACTIN 10.52 NG/ML
[2022-10-31 14:37] LABS: PROCALCITONIN 0.09 ng/ml
[2022-10-31] MEDS ORDERED: traMADol 50 MG TAB PO PRN (15:00)
[2022-10-31] MEDS ORDERED: MOM 30ML SUSPENSION UDC PO PRN (15:00)
[2022-10-31 15:09] LABS: ERYTHROCYTE SEDIMENTATION RATE 69 mm/hr (0-30)
[2022-10-31] MEDS: ACETAMINOPHEN 500 MG TAB PO SCH (18:19)
[2022-10-31] MEDS: RIVAROXABAN 15MG TAB (XARELTO) PO SCH (21:47)
[2022-10-31] MEDS: zolPIDEM TARTRATE 5 MG TAB PO SCH (21:47)
[2022-10-31] MEDS: ROSUVASTATIN 10 MG TAB (CRESTOR) PO SCH (21:48)
[2022-10-31] MEDS: ASPIRIN 81MG ENTERIC TABLET PO SCH (21:48)
[2022-10-31] MEDS: METOPROLOL SUCC (TopROL XL) 50MG **XL** TAB PO SCH (21:48)
[2022-10-31] MEDS: ESCITALOPRAM OXALATE 10 MG TAB (LEXAPRO) PO SCH (21:49)
[2022-10-31 22:00] VITALS: BP 142/77; TEMP 98.4; O2SAT 88
[2022-11-01] VITALS (7 sets, daily range): BP systolic 126–172; BP diastolic 67–96; TEMP 97.3–98.6; O2SAT 91–97
[2022-11-01] MEDS ORDERED: METOPROLOL SUCC (TopROL XL) 50MG **XL** TAB PO SCH
[2022-11-01] MEDS: ACETAMINOPHEN 500 MG TAB PO SCH ×5 (00:19→23:14)
[2022-11-01] MEDS ORDERED: FUROSEMIDE 20MG/2ML VIAL IV ONE (08:10)
[2022-11-01 08:44] LABS: BASO # 0.1 10^3/uL (0.0-0.2); BASO % 0.7 % (0.0-1.0); EOS # 0.2 10^3/uL (0.0-0.5); EOS % 2.2 % (0.0-3.0); HEMATOCRIT 28.8 % (36.0-47.0); HEMOGLOBIN 9.4 g/dl (12.0-15.5); LYMPH # 2.3 10^3/uL (1.5-5.0); LYMPH % 22.8 % (24.0-44.0); MEAN CORPUSCULAR HEMOGLOBIN 32.3 pg (27.0-33.0); MEAN CORPUSCULAR HGB CONC 32.6 g/dl (32.0-36.5); MONO # 0.8 10^3/uL (0.0-0.8); MONO % 8.3 % (2.0-8.0); NEUTROPHILS # 6.6 10^3/uL (1.5-8.5); NEUTROPHILS % 65.8 % (36.0-66.0); PLATELET COUNT, AUTOMATED 269 10^3/uL (150-450); RED BLOOD COUNT 2.91 10^6/uL (4.00-5.40); WHITE BLOOD COUNT 10.1 10^3/uL (4.0-10.0)
[2022-11-01 08:53] LABS: ERYTHROCYTE SEDIMENTATION RATE 53 mm/hr (0-30)
[2022-11-01] MEDS: SENOKOT S TAB PO SCH ×2 (09:00→21:32)
[2022-11-01] MEDS: MIRALAX *UNIT DOSE* 17GM PACKET PO SCH ×2 (09:00→21:00)
[2022-11-01 09:04] LABS: BLOOD UREA NITROGEN 16 MG/DL (9-23); CALCIUM LEVEL 8.4 MG/DL (8.3-10.6); CARBON DIOXIDE LEVEL 29 MMOL/L (20-31); CHLORIDE LEVEL 105 MMOL/L (98-107); CREATININE FOR GFR 0.94 MG/DL (0.55-1.30); GLOMERULAR FILTRATION RATE > 60.0 (>32); GLUCOSE, FASTING 103 MG/DL (74-106); POTASSIUM SERUM 4.3 MMOL/L (3.5-5.1); SODIUM LEVEL 139 MMOL/L (136-145)
[2022-11-01 09:32] LABS: CK-MB VALUE MASS 7.3 NG/ML (<3.6); MB/CK RELATIVE INDEX 6.18 (< OR =4)
[2022-11-01] MEDS: METOPROLOL SUCC (TopROL XL) 50MG **XL** TAB PO SCH ×2 (10:15→21:32)
[2022-11-01] MEDS ORDERED: METO1TAB7 PO (11:40)
[2022-11-01] MEDS ORDERED: MIRA1POW3 PO (11:40)
[2022-11-01] MEDS ORDERED: ACET-683 PO (11:40)
[2022-11-01] MEDS ORDERED: TRAM50TA2 PO (11:40)
[2022-11-01] MEDS ORDERED: SENN-52 PO (11:40)
[2022-11-01 15:07] LABS: CK-MB VALUE MASS 7.3 NG/ML (<3.6)
[2022-11-01 15:08] LABS: MB/CK RELATIVE INDEX 5.93 (< OR =4)
[2022-11-01] MEDS ORDERED: NITROGLYCERIN 0.4MG SUBL TABLET SL PRN (15:45)
[2022-11-01] MEDS ORDERED: ENOXAPARIN 60MG/0.6ML SYRINGE (J1650 PER 10MG) SC SCH (21:00)
[2022-11-01] MEDS: ASPIRIN 81MG ENTERIC TABLET PO SCH (21:32)
[2022-11-01] MEDS: ROSUVASTATIN 10 MG TAB (CRESTOR) PO SCH (21:33)
[2022-11-01] MEDS: zolPIDEM TARTRATE 5 MG TAB PO SCH ×2 (21:34→22:13)
[2022-11-01] MEDS: ESCITALOPRAM OXALATE 10 MG TAB (LEXAPRO) PO SCH (21:34)
[2022-11-02] VITALS (7 sets, daily range): BP systolic 151–168; BP diastolic 74–90; TEMP 96.4–97.7; O2SAT 95–97
[2022-11-02 00:47] LABS: CK-MB VALUE MASS 4.4 NG/ML (<3.6)
[2022-11-02 00:48] LABS: MB/CK RELATIVE INDEX 4.48 (< OR =4)
[2022-11-02] MEDS ORDERED: METOPROLOL TART 25 MG TABLET PO ONE (01:00)
[2022-11-02] MEDS: ACETAMINOPHEN 500 MG TAB PO SCH ×2 (05:19→12:49)
[2022-11-02 05:45] LABS: HEMOGLOBIN 9.5 g/dl (12.0-15.5); MEAN CORPUSCULAR HEMOGLOBIN 32.2 pg (27.0-33.0); MEAN CORPUSCULAR HGB CONC 32.8 g/dl (32.0-36.5); MEAN CORPUSCULAR VOLUME 98.3 fl (80.0-96.0); PLATELET COUNT, AUTOMATED 315 10^3/uL (150-450); RED BLOOD COUNT 2.95 10^6/uL (4.00-5.40); WHITE BLOOD COUNT 11.5 10^3/uL (4.0-10.0)
[2022-11-02 06:08] LABS: CK-MB VALUE MASS 3.8 NG/ML (<3.6)
[2022-11-02 06:12] LABS: BLOOD UREA NITROGEN 15 MG/DL (9-23); CALCIUM LEVEL 8.8 MG/DL (8.3-10.6); CARBON DIOXIDE LEVEL 26 MMOL/L (20-31); CHLORIDE LEVEL 104 MMOL/L (98-107); CPK CREATINE PHOSPHOKINASE 101 U/L (34-145); CREATININE FOR GFR 0.91 MG/DL (0.55-1.30); GLOMERULAR FILTRATION RATE > 60.0 (>32); GLUCOSE, FASTING 120 MG/DL (74-106); MB/CK RELATIVE INDEX 3.76 (< OR =4); SODIUM LEVEL 140 MMOL/L (136-145)
[2022-11-02] MEDS ORDERED: METOPROLOL SUCC (TopROL XL) 50MG **XL** TAB PO ONE (07:00)
[2022-11-02] MEDS ORDERED: HEPARIN SOD (PORCINE) 5000UNITS/ML 1ML VIAL/SYRINGE IV PRN (08:25)
[2022-11-02] MEDS ORDERED: HEPARIN DRIP 25,000 UNITS in IV 1 EA IV SCH (08:25)
[2022-11-02 09:12] LABS: HEMATOCRIT 28.7 % (36.0-47.0); HEMOGLOBIN 9.5 g/dl (12.0-15.5); MEAN CORPUSCULAR HEMOGLOBIN 32.6 pg (27.0-33.0); MEAN CORPUSCULAR HGB CONC 33.1 g/dl (32.0-36.5); MEAN CORPUSCULAR VOLUME 98.6 fl (80.0-96.0); PLATELET COUNT, AUTOMATED 295 10^3/uL (150-450); RED BLOOD COUNT 2.91 10^6/uL (4.00-5.40); WHITE BLOOD COUNT 11.8 10^3/uL (4.0-10.0)
[2022-11-02] MEDS: SENOKOT S TAB PO SCH (10:01)
[2022-11-02] MEDS: MIRALAX *UNIT DOSE* 17GM PACKET PO SCH (10:01)
== END 2022-11-02 12:55 | disposition short-term general hospital (02) | DRG 562 ==
LOC: EDBD 09:39 → M ED 09:39 → M ED INP 11:45 → ENRESERV 16:28 → M MS5PR 17:39 → M MSPAV 18:36 → M PCU 11-01 12:34
PROVIDERS: ADMIT General Practice; ATTEND General Practice
DX: S42.202A Unspecified fracture of upper end of left humerus, initial encounter for closed fracture (principal); G92.8 Other toxic encephalopathy; I21.4 Non-ST elevation (NSTEMI) myocardial infarction; I48.20 Chronic atrial fibrillation, unspecified; I50.32 Chronic diastolic (congestive) heart failure; I48.92 Unspecified atrial flutter; I16.0 Hypertensive urgency; I25.10 Atherosclerotic heart disease of native coronary artery without angina pectoris; M79.7 Fibromyalgia; Z86.73 Personal history of transient ischemic attack (TIA), and cerebral infarction without residual deficits; K59.00 Constipation, unspecified; R29.6 Repeated falls; Z79.01 Long term (current) use of anticoagulants; W18.30XA Fall on same level, unspecified, initial encounter; Y92.009 Unspecified place in unspecified non-institutional (private) residence as the place of occurrence of the external cause; S62.602A Fracture of unspecified phalanx of right middle finger, initial encounter for closed fracture; Z79.899 Other long term (current) drug therapy; Z79.82 Long term (current) use of aspirin; Z88.0 Allergy status to penicillin; F32.A Depression, unspecified

== ENCOUNTER → 2022-11-12 | Outpatient (REF) ==
[~2022-11-12] MED LIST changes: +METO1TAB7 PO; +TRAM50TA2 PO
[2022-11-12 08:31] LABS: HEMATOCRIT 30.7 % (36.0-47.0); HEMOGLOBIN 9.9 g/dl (12.0-15.5); MEAN CORPUSCULAR HEMOGLOBIN 32.7 pg (27.0-33.0); MEAN CORPUSCULAR HGB CONC 32.2 g/dl (32.0-36.5); MEAN CORPUSCULAR VOLUME 101.3 fl (80.0-96.0); PLATELET COUNT, AUTOMATED 360 10^3/uL (150-450); RED BLOOD COUNT 3.03 10^6/uL (4.00-5.40); WHITE BLOOD COUNT 9.4 10^3/uL (4.0-10.0)
[2022-11-12 08:56] LABS: CALCIUM LEVEL 9.2 MG/DL (8.3-10.6); CREATININE FOR GFR 1.01 MG/DL (0.55-1.30); GLOMERULAR FILTRATION RATE 55.9 (>32)
== END ==
PROVIDERS: ATTEND Physician Assistant
DX: I10 Essential (primary) hypertension (principal)

== ENCOUNTER → 2022-11-19 | Outpatient (REF) ==
[2022-11-19 08:06] LABS: MEAN CORPUSCULAR HEMOGLOBIN 32.1 pg (27.0-33.0); MEAN CORPUSCULAR HGB CONC 32.3 g/dl (32.0-36.5); MEAN CORPUSCULAR VOLUME 99.4 fl (80.0-96.0); PLATELET COUNT, AUTOMATED 310 10^3/uL (150-450); RED BLOOD COUNT 3.12 10^6/uL (4.00-5.40); WHITE BLOOD COUNT 7.2 10^3/uL (4.0-10.0)
[2022-11-19 08:40] LABS: BLOOD UREA NITROGEN 18 MG/DL (9-23); CALCIUM LEVEL 8.9 MG/DL (8.3-10.6); CARBON DIOXIDE LEVEL 26 MMOL/L (20-31); CHLORIDE LEVEL 106 MMOL/L (98-107); CREATININE FOR GFR 0.94 MG/DL (0.55-1.30); GLOMERULAR FILTRATION RATE > 60.0 (>32); GLUCOSE, FASTING 75 MG/DL (74-106); SODIUM LEVEL 142 MMOL/L (136-145)
== END ==
PROVIDERS: ATTEND Physician Assistant
DX: I10 Essential (primary) hypertension (principal)

== ENCOUNTER → 2022-12-11 | Outpatient (CLI) | payer MEDICARE, OTHER, BC | LOC: M SOG 07:53 | PROVIDERS: ATTEND Physician Assistant | DX: M25.512 Pain in left shoulder (principal) ==

== ENCOUNTER → 2023-10-12 | Outpatient (CLI) | payer MEDICARE ==
[~2023-10-12] MED LIST changes: -MIRA1POW3 PO; +MIRA33506 PO; -ROSU10TA6 PO; +ROSU10TA61 PO
== END ==
LOC: M SOG 07:55
PROVIDERS: ATTEND Orthopaedic Surgery
DX: M54.50 Low back pain, unspecified (principal)

== ENCOUNTER → 2023-10-21 | Outpatient (CLI) | payer MEDICARE | LOC: M SOG 07:54 | PROVIDERS: ATTEND Orthopaedic Surgery | DX: M54.50 Low back pain, unspecified (principal) ==

== ENCOUNTER 2023-12-04 20:10 | Inpatient (IN) | payer MEDICARE ==
[~2023-12-04] VITALS: Ht 160 cm; Wt 58.3 kg
[2023-12-04 20:45] LABS: BASO % 0.3 % (0.0-1.0); EOS % 0.2 % (0.0-3.0); HEMATOCRIT 32.2 % (36.0-47.0); HEMOGLOBIN 10.9 g/dl (12.0-15.5); LYMPH # 0.5 10^3/uL (1.5-5.0); LYMPH % 4.1 % (24.0-44.0); MEAN CORPUSCULAR HGB CONC 33.9 g/dl (32.0-36.5); MEAN CORPUSCULAR VOLUME 94.4 fl (80.0-96.0); MONO # 0.4 10^3/uL (0.0-0.8); MONO % 3.1 % (2.0-8.0); NEUTROPHILS # 10.6 10^3/uL (1.5-8.5); NEUTROPHILS % 91.9 % (36.0-66.0); PLATELET COUNT, AUTOMATED 181 10^3/uL (150-450); RED BLOOD COUNT 3.41 10^6/uL (4.00-5.40); WHITE BLOOD COUNT 11.5 10^3/uL (4.0-10.0)
[2023-12-04 21:18] LABS: ALBUMIN 3.5 G/DL (3.2-5.2); BILIRUBIN,DIRECT 0.3 MG/DL (<0.4); CALCIUM LEVEL 8.7 MG/DL (8.3-10.6); CREATININE FOR GFR 0.99 MG/DL (0.55-1.30); TOTAL PROTEIN 6.5 G/DL (5.7-8.2)
[2023-12-04] MEDS: ACETAMINOPHEN TAB 650MG DOSE (2X325MG) PO ONE (22:19)
[2023-12-05] VITALS (9 sets, daily range): BP systolic 112–172; BP diastolic 51–65; TEMP 97.2–97.7; O2SAT 91–96
[2023-12-05] MEDS ORDERED: MOM 30ML SUSPENSION UDC PO PRN ×2 (01:05→01:20)
[2023-12-05] MEDS ORDERED: ACETAMINOPHEN TAB 650MG DOSE (2X325MG) PO PRN (01:05)
[2023-12-05] MEDS ORDERED: MAALOX 30 ML SUSP *UDC PO PRN ×2 (01:05→01:20)
[2023-12-05 01:18] LABS: MAGNESIUM LEVEL 1.6 MG/DL (1.8-2.4)
[2023-12-05] MEDS ORDERED: ALBUTEROL 90 MCG/ACT 8GM HFA INHALER INH PRN (01:25)
[2023-12-05] MEDS ORDERED: DEXTROMETHORPHAN 60MG/10ML SUSP 90ML BTL(DELSYM) PO PRN (01:25)
[2023-12-05 01:32] LABS: C REACTIVE PROTEIN QUANTITATIV 1.9 MG/DL (<1.0)
[2023-12-05 01:36] LABS: FERRITIN 106.5 NG/ML (7.3-270.7)
[2023-12-05 01:40] LABS: PROCALCITONIN 0.11 ng/ml
[2023-12-05 02:24] LABS: D-DIMER QUANT 0.4 ug/mL (<0.5); INR 1.19; PARTIAL THROMBOPLASTIN TIME 27.9 SECONDS (24.8-34.2); PROTHROMBIN TIME 14.8 SECONDS (12.5-14.5)
[2023-12-05] MEDS: ACETAMINOPHEN TAB 650MG DOSE (2X325MG) PO PRN (02:53)
[2023-12-05] MEDS: MAGNESIUM OXIDE 400MG TAB (MAG-OX) PO SCH (02:53)
[2023-12-05] MEDS: NS 1,000 ML IV SCH (02:53)
[2023-12-05] MEDS ORDERED: METO1TAB7 PO (03:04)
[2023-12-05] MEDS ORDERED: FURO20TA2 PO (03:06)
[2023-12-05] MEDS ORDERED: ELIQ2.5T PO (03:06)
[2023-12-05] MEDS ORDERED: HOME MED LIST COMPLETE! XX SCH (03:10)
[2023-12-05] MEDS: DOCUSATE SODIUM 100MG CAPSULE PO SCH (08:58)
[2023-12-05] MEDS: APIXABAN 2.5 MG TAB (ELIQUIS) PO SCH (08:58)
[2023-12-05] MEDS ORDERED: ENOXAPARIN 40MG/0.4ML SYRINGE (J1650 PER 10MG) SC SCH (09:00)
[2023-12-05] MEDS ORDERED: DOCUSATE SODIUM 100MG CAPSULE PO SCH (09:00)
[2023-12-05] MEDS: REMDESIVIR 200 MG in NS 250 ML IV ONE (10:41)
[2023-12-06] VITALS: BP 156/63; TEMP 97.3; O2SAT 94
[2023-12-06 04:20] VITALS: BP 178/70; TEMP 97.2; O2SAT 97
[2023-12-06 07:50] LABS: BASO % 0.4 % (0.0-1.0); EOS # 0.1 10^3/uL (0.0-0.5); EOS % 1.1 % (0.0-3.0); LYMPH # 0.8 10^3/uL (1.5-5.0); LYMPH % 15.5 % (24.0-44.0); MEAN CORPUSCULAR HEMOGLOBIN 31.3 pg (27.0-33.0); MEAN CORPUSCULAR HGB CONC 32.3 g/dl (32.0-36.5); MEAN CORPUSCULAR VOLUME 96.9 fl (80.0-96.0); MONO # 0.8 10^3/uL (0.0-0.8); MONO % 14.2 % (2.0-8.0); NEUTROPHILS # 3.7 10^3/uL (1.5-8.5); NEUTROPHILS % 68.6 % (36.0-66.0); PLATELET COUNT, AUTOMATED 146 10^3/uL (150-450); WHITE BLOOD COUNT 5.4 10^3/uL (4.0-10.0)
[2023-12-06 08:00] VITALS: BP 165/78; TEMP 97; O2SAT 94
[2023-12-06 08:05] LABS: BLOOD UREA NITROGEN 13 MG/DL (9-23); CARBON DIOXIDE LEVEL 26 MMOL/L (20-31); CHLORIDE LEVEL 109 MMOL/L (98-107); CREATININE FOR GFR 0.84 MG/DL (0.55-1.30); GLOMERULAR FILTRATION RATE > 60.0 (>32); GLUCOSE, FASTING 77 MG/DL (74-106); MAGNESIUM LEVEL 1.7 MG/DL (1.8-2.4); POTASSIUM SERUM 3.7 MMOL/L (3.5-5.1); SODIUM LEVEL 140 MMOL/L (136-145)
[2023-12-06] MEDS: REMDESIVIR 100 MG in NS 250 ML IV SCH (10:36)
[2023-12-06 12:00] VITALS: BP 144/72; TEMP 97.2; O2SAT 96
[2023-12-06] MEDS: METOPROLOL SUCC *XL* 25MG TAB (TopROL *XL*) PO SCH (15:54)
[2023-12-06] MEDS: MAG SULF 1GM/100ML (MAG RUN) 1 GM in IV 1 EA IV SCH (15:55)
[2023-12-06 16:00] VITALS: BP 165/71; TEMP 97.2; O2SAT 94
[2023-12-06 16:30] LABS: THYROID STIMULATING HORMONE 2.719 uIU/ML (0.55-4.78)
[2023-12-06 16:31] LABS: FREE T4 0.91 NG/DL (0.89-1.76)
[2023-12-06 19:25] VITALS: BP 155/70; TEMP 97; O2SAT 97
[2023-12-06] MEDS: zolPIDEM TARTRATE 5 MG TAB PO SCH (22:01)
[2023-12-07] VITALS (8 sets, daily range): BP systolic 132–189; BP diastolic 74–86; TEMP 97–97.2; O2SAT 92–96
[2023-12-07 05:53] LABS: BASO % 0.5 % (0.0-1.0); EOS # 0.3 10^3/uL (0.0-0.5); EOS % 4.6 % (0.0-3.0); HEMATOCRIT 32.7 % (36.0-47.0); HEMOGLOBIN 10.8 g/dl (12.0-15.5); LYMPH # 1.2 10^3/uL (1.5-5.0); LYMPH % 20.2 % (24.0-44.0); MEAN CORPUSCULAR HEMOGLOBIN 31.3 pg (27.0-33.0); MEAN CORPUSCULAR VOLUME 94.8 fl (80.0-96.0); MONO # 0.6 10^3/uL (0.0-0.8); MONO % 10.7 % (2.0-8.0); NEUTROPHILS # 3.8 10^3/uL (1.5-8.5); NEUTROPHILS % 63.8 % (36.0-66.0); PLATELET COUNT, AUTOMATED 170 10^3/uL (150-450); RED BLOOD COUNT 3.45 10^6/uL (4.00-5.40); WHITE BLOOD COUNT 5.9 10^3/uL (4.0-10.0)
[2023-12-07 06:11] LABS: BLOOD UREA NITROGEN 14 MG/DL (9-23); CALCIUM LEVEL 8.2 MG/DL (8.3-10.6); CARBON DIOXIDE LEVEL 28 MMOL/L (20-31); CHLORIDE LEVEL 109 MMOL/L (98-107); CREATININE FOR GFR 0.83 MG/DL (0.55-1.30); GLOMERULAR FILTRATION RATE > 60.0 (>32); GLUCOSE, FASTING 75 MG/DL (74-106); MAGNESIUM LEVEL 1.9 MG/DL (1.8-2.4); POTASSIUM SERUM 3.4 MMOL/L (3.5-5.1); SODIUM LEVEL 139 MMOL/L (136-145)
[2023-12-07] MEDS: lisinopriL 40MG TAB PO SCH (08:26)
[2023-12-07] MEDS: ESCITALOPRAM OXALATE 10 MG TAB (LEXAPRO) PO SCH (08:26)
[2023-12-07] MEDS: POTASSIUM CHLORIDE 10MEQ SR TABLET PO SCH (08:26)
[2023-12-07] MEDS: METOPROLOL SUCC (TopROL XL) 50MG **XL** TAB PO SCH (08:28)
[2023-12-07] MEDS: **hydrALAZINE HCL** 25 MG TAB PO SCH (13:15)
[2023-12-07] MEDS: REMDESIVIR 100 MG in NS 250 ML IV SCH (14:00)
[2023-12-07] MEDS: FUROSEMIDE 20 MG TAB PO SCH (21:00)
[2023-12-07] MEDS: ROSUVASTATIN 10 MG TAB (CRESTOR) PO SCH (21:02)
[2023-12-08 00:18] VITALS: BP 188/84; TEMP 97.5; O2SAT 93
[2023-12-08 04:00] VITALS: BP 160/82; TEMP 97.2; O2SAT 95
[2023-12-08 06:34] LABS: BLOOD UREA NITROGEN 11 MG/DL (9-23); CALCIUM LEVEL 8.6 MG/DL (8.3-10.6); CARBON DIOXIDE LEVEL 28 MMOL/L (20-31); CHLORIDE LEVEL 108 MMOL/L (98-107); CREATININE FOR GFR 0.88 MG/DL (0.55-1.30); GLOMERULAR FILTRATION RATE > 60.0 (>32); GLUCOSE, FASTING 80 MG/DL (74-106); POTASSIUM SERUM 3.8 MMOL/L (3.5-5.1); SODIUM LEVEL 142 MMOL/L (136-145)
[2023-12-08 08:40] VITALS: BP 143/70; TEMP 97; O2SAT 97
[2023-12-08] MEDS: **hydrALAZINE HCL** 25 MG TAB PO ONE (08:51)
[2023-12-08 11:46] VITALS: BP 150/82
[2023-12-08] MEDS ORDERED: METO1TAB7 PO (11:46)
[2023-12-08] MEDS: **hydrALAZINE** 50 MG TAB PO SCH (11:46)
[2023-12-08] MEDS ORDERED: HYDR50TA46 PO (11:46)
[2023-12-08 12:00] VITALS: BP 150/82; TEMP 97; O2SAT 95
== END 2023-12-08 15:23 | disposition home or self-care (01) | DRG 178 ==
LOC: M ED 20:10 → M ED INP 12-05 01:03 → M MSPAV 12-05 02:19
PROVIDERS: ADMIT Preventive Medicine Undersea and Hyperbaric Medicine; ATTEND Hospitalist
DX: U07.1 COVID-19 (principal); I50.32 Chronic diastolic (congestive) heart failure; I48.92 Unspecified atrial flutter; I25.10 Atherosclerotic heart disease of native coronary artery without angina pectoris; I11.0 Hypertensive heart disease with heart failure; E83.42 Hypomagnesemia; I48.91 Unspecified atrial fibrillation; R29.6 Repeated falls; E55.9 Vitamin D deficiency, unspecified; K21.9 Gastro-esophageal reflux disease without esophagitis; Z86.73 Personal history of transient ischemic attack (TIA), and cerebral infarction without residual deficits; Z79.01 Long term (current) use of anticoagulants; F32.A Depression, unspecified; Z88.0 Allergy status to penicillin; Z79.899 Other long term (current) drug therapy; M79.7 Fibromyalgia; Z95.2 Presence of prosthetic heart valve; Z98.49 Cataract extraction status, unspecified eye